=== PATIENT | male | born 1950 | race African-American/Black ===

== ENCOUNTER 2016-10-29 11:38 | Inpatient (IN) | payer MEDICARE, OTHER ==
[~2016-10-29] VITALS: Ht 185.4 cm; Wt 88.9 kg
[~2016-10-29 11:38] MED LIST: ALBU1AER INH; CLIN1CAP5 PO; COUM4TAB7 PO; LASI20TA PO; LISI-363 PO; LOPR50TA12 PO
[2016-10-29 11:40] VITALS: BP 111/56; PULSE 66; RESP 14; TEMP 98.8; O2SAT 97
--- NOTE | 2016-10-29 11:46 | PD ---
Physical Exam Date Seen by Provider: Oct 29, 2016 Time Seen by Provider: 11:42 Data Data Last Documented VS Vital Signs Date Time Temp Pulse Resp B/P Pulse Ox O2 Delivery O2 Flow Rate FiO2 10/29/16 11:40 98.8 66 14 111/56 97 MDM Supervised Visit with EDGARDO: No Narrative Course 66 YO M with complaint of weakness, CP, SOB, abdominal pain, N/V, blood in stools. + chills, sweats. History CHF, DM, HTN, asthma. ON COUMADIN Vitals reviewed. Seen in triage, awaiting bed placement. Tracee Hall Oct 29, 2016 11:45
[2016-10-29] MEDS ORDERED: SODIUM CHLORIDE 0.9% FLUSH 10 ML FLUSH IVF PRN (12:00)
--- NOTE | 2016-10-29 12:01 | PD ---
HPI Chief Complaint: Chest Pain Time Seen by Provider: 12:01 Travel History International Travel<30 days: No Contact w/Intl Traveler<30days: No Traveled to known affect area: No History of Present Illness HPI 66-year-old male with a history of hypertension, hyperlipidemia, CHF, atrial fibrillation, diabetes, CVA anticoagulated on warfarin presents to the emergency department for evaluation of chest pain and abdominal pain. The patient states that he has had left-sided chest pain for 2-3 months. States it happens every day multiple times per day. Describes it as a sharp fluttering pain. It should be noted that the patient is a very poor historian. The patient states that he does sometimes have lightheadedness with the pain. He also states that 3 days ago he had one single episode of bloody emesis. States that he has had 1-2 episodes of bloody stool over the past several days and his grandson noted that his stool was dark. He also complains of abdominal pain. The patient's is also at bedside and reports that the patient has been confused and not acting like himself for about 2 weeks. She states that she does not live with him but when she came to see him 2 weeks ago she noticed he had some bruises on his face and thinks that he fell. The patient denies any fever, chills, shortness of breath, cough or cold symptoms, headache, blurred vision, weakness, numbness or tingling. The patient admits to a history of alcohol use, states that he previously drank alcohol every day but has not drank in 2 weeks. Denies drug use. PCP Dr. Burnett. [facility] Past Medical History Hx Anticoagulant Therapy: Yes (WARFARIN) Arthritis: No Asthma: Yes Atrial Fibrillation: Yes Autoimmune Disease: No Blood Disorders: No Anxiety: No Depression: No Heart Rhythm Problems: No Cancer: No Cardiac Catheterization: No Cardiovascular Problems: Yes (CHF, [place]) High Cholesterol: No Chemotherapy: No Chest Pain: Yes (1979) Congestive Heart Failure: Yes COPD: Yes Cerebrovascular Accident: Yes Coronary Artery Disease: Yes Diabetes: Yes Patient Takes Glucophage: No Diminished Hearing: Yes (PARTIALLY DEAF IN LEFT EAR) Endocrine: No GERD: No Glaucoma: No Genitourinary: No Headaches: Yes Hepatitis: No Hiatal Hernia: Yes (RIGHT INGUINAL HERNIA REPAIR.) Hypertension: Yes Immune Disorder: No Kidney Stones: No Medical other: No Musculoskeletal: No Neurologic: Yes Psychiatric: No Reproductive: No Respiratory: Yes (ASTHMA) Migraines: No Myocardial Infarction: Yes (H/O) Radiation Therapy: No Renal Failure: No Seizures: No Sickle Cell Disease: No Sleep Apnea: No Thyroid Disease: No Ulcer: No Past Surgical History Abdominal Surgery: Yes (RIGHT INGINAL HERNIA REPAIR.) AICD: No Appendectomy: No Arteriovenous Shunt: No Cardiac Surgery: No Cholecystectomy: No Coronary Artery Bypass Graft: No Ear Surgery: No Endocrine Surgery: No Eye Surgery: No Genitourinary Surgery: No Gynecologic Surgery: No Insulin Pump: No Joint Replacement: No Oral Surgery: No Pacemaker: No Thoracic Surgery: No Other Surgery: Yes (CYST REMOVED FROM HIS BACK) Social History Alcohol Use: Yes (states he use to drink daily ) Tobacco Use: No Substance Use: No Allergies-Medications (Allergen,Severity, Reaction): Coded Allergies: Penicillin (Verified Allergy, Mild, 10/29/16) Reported Meds & Prescriptions Reported Meds & Active Scripts Active Reported Metoprolol Tartrate 50 Mg Tab 50 Mg PO BID Lisinopril 20 Mg Tab 20 Mg PO DAILY Ergocalciferol 50,000 Unit Cap 50,000 Units PO Q7D Warfarin 4 Mg Tab 4 Mg PO DAILY Review of Systems ROS Limitations: Poor Historian Except as stated in HPI: all other systems reviewed are Neg Physical Exam Exam Limitations: Poor Historian Narrative GENERAL: Well-nourished and well-developed male patient in no acute distress. SKIN: Warm and dry. HEAD: Normocephalic and atraumatic. No facial droop. EYES: No injection, drainage, or hyphema noted. PERRLA. EOMI. ENT: No nasal drainage noted. Oropharynx is clear. NECK: Supple and the trachea is midline. CARDIOVASCULAR: Regular rate and rhythm. RESPIRATORY: Breath sounds are equal bilaterally with no accessory muscle use, wheezing, rhonchi, or crackles. GASTROINTESTINAL: Tenderness to palpation of left lower quadrant, epigastric and left upper quadrant. No rebound tenderness or guarding. RECTAL EXAM: No masses or tenderness, stool is brown. Performed in the presence of Marsha LAGUNAS. MUSCULOSKELETAL: No obvious deformities, swelling, cyanosis, or ecchymosis is present throughout the upper and lower extremities. Patient has full range of motion without any signs of neurovascular compromise. During 5/5 upper and lower extremities equal bilaterally. NEUROLOGICAL: Awake, alert, and oriented to person and place. Unsure of the date or time. Normal speech and gait. Cranial nerves are grossly intact. Data Data Last Documented VS Vital Signs Date Time Temp Pulse Resp B/P Pulse Ox O2 Delivery O2 Flow Rate FiO2 10/29/16 14:01 62 14 115/55 99 Room Air 10/29/16 11:40 98.8 Orders Electrocardiogram (10/29/16 11:59) B-Type Natriuretic Peptide (10/29/16 11:59) Ckmb (Isoenzyme) Profile (10/29/16 11:59) Complete Blood Count With Diff (10/29/16 11:59) Comprehensive Metabolic Panel (10/29/16 11:59) Magnesium (Mg) (10/29/16 11:59) Prothrombin Time / Inr (Pt) (10/29/16 11:59) Act Partial Throm Time (Ptt) (10/29/16 11:59) Troponin I (10/29/16 11:59) Lipase (10/29/16 11:59) Chest, Single Ap (10/29/16 11:59) Ecg Monitoring (10/29/16 11:59) Iv Access Insert/Monitor (10/29/16 11:59) Oximetry (10/29/16 11:59) Sodium Chloride 0.9% Flush (Ns Flush) (10/29/16 12:00) Ct Abd/Pel W Iv Contrast(Rout) (10/29/16 11:59) Ct Brain W/O Iv Contrast(Rout) (10/29/16 12:04) Urinalysis - C+S If Indicated (10/29/16 12:09) Drug Screen, Random Urine (10/29/16 12:09) Alcohol (Ethanol) (10/29/16 12:00) Morphine Inj (Morphine Inj) (10/29/16 13:00) Ondansetron Inj (Zofran Inj) (10/29/16 13:00) CKMB (10/29/16 13:20) CKMB% (10/29/16 13:20) Azithromycin Inj (Zithromax Inj) (10/29/16 14:30) Ceftriaxone Inj (Rocephin Inj) (10/29/16 14:30) Sodium Chlor 0.9% 1000 Ml Inj (Ns 1000 M (10/29/16 14:48) Iohexol 350 Inj (Omnipaque 350 Inj) (10/29/16 15:38) Mri Brain W&W/O Contrast (10/29/16 16:06) Urine Culture (10/29/16 15:59) Gadodiamide Pf Inj (Omniscan Pf Inj) (10/29/16 17:47) Admit Order (Ed Use Only) (10/29/16 18:29) Labs Laboratory Tests Test 10/29/16 10/29/16 10/29/16 12:00 13:20 15:59 White Blood Count 6.1 TH/MM3 Red Blood Count 5.01 MIL/MM3 Hemoglobin 14.0 GM/DL Hematocrit 42.0 % Mean Corpuscular Volume 83.8 FL Mean Corpuscular Hemoglobin 28.0 PG Mean Corpuscular Hemoglobin 33.4 % Concent Red Cell Distribution Width 13.2 % Platelet Count 237 TH/MM3 Mean Platelet Volume 7.8 FL Neutrophils (%) (Auto) 65.6 % Lymphocytes (%) (Auto) 19.6 % Monocytes (%) (Auto) 14.0 % Eosinophils (%) (Auto) 0.3 % Basophils (%) (Auto) 0.5 % Neutrophils # (Auto) 4.0 TH/MM3 Lymphocytes # (Auto) 1.2 TH/MM3 Monocytes # (Auto) 0.9 TH/MM3 Eosinophils # (Auto) 0.0 TH/MM3 Basophils # (Auto) 0.0 TH/MM3 CBC Comment DIFF FINAL Differential Comment Prothrombin Time 14.7 SEC Prothromb Time International 1.3 RATIO Ratio Activated Partial 37.9 SEC Thromboplast Time B-Type Natriuretic Peptide 16 PG/ML Sodium Level 130 MEQ/L Potassium Level 4.9 MEQ/L Chloride Level 97 MEQ/L Carbon Dioxide Level 27.8 MEQ/L Anion Gap 5 MEQ/L Blood Urea Nitrogen 12 MG/DL Creatinine 0.83 MG/DL Estimat Glomerular Filtration 112 ML/MIN Rate Random Glucose 97 MG/DL Calcium Level 8.5 MG/DL Magnesium Level 2.4 MG/DL Total Bilirubin 0.7 MG/DL Aspartate Amino Transf 111 U/L (AST/SGOT) Alanine Aminotransferase 53 U/L (ALT/SGPT) Alkaline Phosphatase 55 U/L Total Creatine Kinase 306 U/L Creatine Kinase MB LESS THAN 0.5 NG/ML Troponin I LESS THAN 0.02 NG/ML Total Protein 7.3 GM/DL Albumin 2.7 GM/DL Lipase 86 U/L Ethyl Alcohol Level LESS THAN 3 MG/DL Urine Color YELLOW Urine Turbidity CLEAR Urine pH 5.5 Urine Specific Morton 1.024 Urine Protein 30 mg/dL Urine Glucose (UA) NEG mg/dL Urine Ketones NEG mg/dL Urine Occult Blood NEG Urine Nitrite NEG Urine Bilirubin NEG Urine Urobilinogen 2.0 MG/DL Urine Leukocyte Esterase TRACE Urine RBC 1 /hpf Urine WBC 11 /hpf Urine Squamous Epithelial <1 /hpf Cells Urine Bacteria FEW /hpf Urine Hyaline Casts 1 /lpf Urine Mucus FEW /lpf Microscopic Urinalysis Comment CULTURE INDICATED Urine Opiates Screen POS Urine Barbiturates Screen NEG Urine Amphetamines Screen NEG Urine Benzodiazepines Screen NEG Urine Cocaine Screen NEG Urine Cannabinoids Screen NEG MDM Medical Decision Making Medical Screen Exam Complete: Yes Emergency Medical Condition: Yes Differential Diagnosis Intracranial hemorrhage versus chest pain versus ACS versus CVA versus electrolyte abnormality versus GI bleed Narrative Course 66-year-old male presents to the emergency department for multiple complaints. He is here complaining of chest pain, abdominal pain, had an episode of bloody emesis and bloody stool and is somewhat confused. Patient is afebrile, vital signs are stable. On examination the patient does have abdominal tenderness to palpation. He is a poor historian and is oriented to person and place only. EKG shows sinus rhythm with no acute ST elevations or depressions. IV access was obtained, labs have been drawn and sent. Patient is placed on cardiac telemetry and pulse oximetry monitoring. CT of the head and the abdomen has been ordered and is pending. CBC is unremarkable. CMP shows mild hyponatremia 130. Cardiac enzymes are negative. Coags show a subtherapeutic INR of 1.3. EtOH is less than 3. Chest x-ray shows increasing consolidative changes in the left lung base. Head CT shows decreased attenuation posteriorly on the left possibly represent an infarct however this could also represent vasogenic edema and underlying mass is not excluded. Postcontrast MRA is warranted for further assessment. 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 CT of the abdomen and pelvis shows developing left lower lobe pneumonia versus aspiration. Stomach is nearly completely decompressed with prominence of the gastric wall in the fundus and body of the stomach. Although this is likely related to incomplete gastric distention, gastritis or less likely an infiltrative process cannot be entirely excluded. Clinical correlation is recommended. Further evaluation may be performed with upper GI examination or endoscopy as clinically warranted. Normal appendix. Apparent interval enlargement of left adrenal mass when compared to prior remote CT exam. Patient is given Rocephin 1 g IV and Zithromax 500 mg IV for pneumonia. MRI has been ordered and is pending. Patient will be admitted to medicine service for altered mental status, chest pain and pneumonia. I discussed the case with my attending physician Dr. Laguerre who is aware of the patients history, physical examination findings, and treatment plan. Physician Communication Physician Communication I spoke with Dr. Cano Kyleigh who agrees to admit the patient to his service. Diagnosis Primary Impression: Altered mental status Qualified Code: R41.0 - Disorientation Additional Impressions: Pneumonia Qualified Code: J18.1 - Pneumonia of left lower lobe due to infectious organism Chest pain Qualified Code: R07.9 - Chest pain, unspecified type Admitting Information Admitting Physician Requests: Gricelda Muse Oct 29, 2016 12:01
[2016-10-29] MEDS ORDERED: LISI-515 PO (12:08)
[2016-10-29] MEDS ORDERED: WARF-20 PO (12:08)
[2016-10-29] MEDS ORDERED: METO50TA PO (12:08)
[2016-10-29] MEDS ORDERED: ERGO1CAP30 PO (12:08)
[2016-10-29 12:29] LABS: BASOPHIL % 0.5 % (0.0-2.0); EOSINOPHIL % 0.3 % (0.0-4.0); HEMO FLAGS DIFF FINAL; LYMPH % 19.6 % (9.0-44.0); LYMPHOCYTE # 1.2 TH/MM3 (1.0-4.8); MEAN CELL VOLUME 83.8 FL (80.0-100.0); MEAN CORPUSCULAR HGB CONC 33.4 % (32.0-36.0); NEUT % 65.6 % (16.0-70.0); PLATELET COUNT 237 TH/MM3 (150-450); RED BLOOD COUNT 5.01 MIL/MM3 (4.50-5.90); RED CELL DISTRIBUTION WIDTH 13.2 % (11.6-17.2); WHITE BLOOD COUNT 6.1 TH/MM3 (4.0-11.0)
[2016-10-29 12:37] LABS: APTT (PATIENT) 37.9 SEC (24.3-30.1); INTERNATIONAL NORMALIZED RATIO 1.3 RATIO; PROTHROMBIN TIME - PATIENT 14.7 SEC (9.8-11.6)
[2016-10-29] MEDS ORDERED: ONDANSETRON HCL 4 MG/2 ML VIAL IV PUSH ONE (13:00)
[2016-10-29] MEDS ORDERED: MORPHINE SULFATE 4 MG/ML INJ IV PUSH ONE (13:00)
--- NOTE | 2016-10-29 13:08 | RADRPT ---
EXAM DATE/TIME: 10/29/2016 12:24 [facility] COMPARISON: CHEST SINGLE AP, September 04, 2014, 13:38. INDICATIONS : Chest pain. MEDICAL HISTORY : Myocardial infarction. Chronic obstructive pulmonary disease. Congestive heart failure. Hypertens ion SURGICAL HISTORY : None. ENCOUNTER: Initial ACUITY: 3 days PAIN SCORE: 5/10 LOCATION: Left upper chest FINDINGS: Increasing consolidations are present in the left base. The right lung is clear. The heart and pulmo nary vascularity are normal. The portion of the bony skeleton visualized is unremarkable. CONCLUSION: Increasing consolidative changes left base. Edin Srinivasan MD FACR on October 29, 2016 at 13:05 Board Certified Radiologist. This report was verified electronically.
[2016-10-29 14:01] VITALS: BP 115/55; PULSE 62; RESP 14; O2SAT 99
[2016-10-29 14:15] LABS: ALKALINE PHOSPHATASE 55 U/L (45-117); ALT (GPT) 53 U/L (12-78); ANION GAP 5 MEQ/L (5-15); AST (GOT) 111 U/L (15-37); BICARBONATE 27.8 MEQ/L (21.0-32.0); BLOOD UREA NITROGEN 12 MG/DL (7-18); CHLORIDE 97 MEQ/L (98-107); CREATINE KINASE 306 U/L (39-308); GLOMERULAR FILTRATION RATE 112 ML/MIN (>89); MAGNESIUM 2.4 MG/DL (1.5-2.5); POTASSIUM 4.9 MEQ/L (3.5-5.1); SODIUM (NA) 130 MEQ/L (136-145); TOTAL BILIRUBIN ADULT 0.7 MG/DL (0.2-1.0)
[2016-10-29 14:28] LABS: CKMB LESS THAN 0.5 NG/ML (0.5-3.6)
[2016-10-29] MEDS ORDERED: AZITHROMYCIN INJ 500 MG in SODIUM CHLOR 0.9% 250 ML INJ 250 ML IV ONE (14:30)
[2016-10-29] MEDS ORDERED: cefTRIAXone INJ 1,000 MG in SODIUM CHLORIDE 0.9% INJ 100 ML IV ONE (14:30)
[2016-10-29] MEDS ORDERED: SODIUM CHLOR 0.9% 1000 ML INJ 1,000 ML IV SCH (14:48)
[2016-10-29] MEDS ORDERED: IOHEXOL 350 MG/ML 10 ML VIAL (for RAD DIAG) IV ONE (15:38)
--- NOTE | 2016-10-29 16:01 | RADRPT ---
EXAM DATE/TIME: 10/29/2016 15:21 [facility] COMPARISON: CT ABDOMEN & PELVIS W CONTRAST, April 30, 2012, 15:17. INDICATIONS : General malaise. Numbness left leg. RADIATION DOSE: 56.38 CTDIvol (mGy) MEDICAL HISTORY : Diabetes mellitus type 2. Cardiovascular disease Hypertension. SURGICAL HISTORY : None. ENCOUNTER: Initial ACUITY: 1 day PAIN SCALE: 0/10 LOCATION: cranial TECHNIQUE: Multiple contiguous axial images were obtained of the head. Using automated exposure control and adj ustment of the mA and/or kV according to patient size, radiation dose was kept as low as reasonably a chievable to obtain optimal diagnostic quality images. FINDINGS: CEREBRUM: The examination demonstrates an area of decreased attenuation in the watershed distribution between t he left parietal-occipital cortex. It is possible this is cytotoxic edema from stroke however finding s would suggest this could represent vasogenic edema as well. MRI imaging with contrast to exclude ma ss is warranted. The ventricles are normal in size and configuration. There is an old cortical infarc t in the left caudate nucleus. There are microvascular ischemic demyelinative change changes. POSTERIOR FOSSA: The cerebellum and brainstem are intact. The 4th ventricle is midline. The cerebellopontine angle i s unremarkable. EXTRACRANIAL: The visualized portion of the orbits is intact. SKULL: The calvaria is intact. No evidence of skull fracture. CONCLUSION: 1. Decreased attenuation posteriorly on the left possibly representing infarct however this could als o represent vasogenic edema and underlying mass is not excluded. Postcontrast MR is warranted for fur ther assessment. 2. Old, encephalomalacic infarct involving the left caudate nucleus. Francisco Srinivasan MD on October 29, 2016 at 15:43 Board Certified Radiologist. This report was verified electronically.
[2016-10-29 16:33] LABS: AMPHETAMINE, URINE NEG (NEG); BARBITURATES, URINE NEG (NEG); COCAINE, URINE NEG (NEG)
--- NOTE | 2016-10-29 16:33 | RADRPT ---
EXAM DATE/TIME: 10/29/2016 15:18 [facility] COMPARISON: CT ABDOMEN & PELVIS W CONTRAST, April 30, 2012, 15:17. INDICATIONS : Chest pain, shortness of breath, chills and diarrhea for 2-3 days. IV CONTRAST: 100 cc Omnipaque 350 (iohexol) IV ORAL CONTRAST: No oral contrast ingested. RADIATION DOSE: 9.96 CTDIvol (mGy) MEDICAL HISTORY : Diabetes mellitus type 2. Hypertension. Cardiovascular disease SURGICAL HISTORY : Hernia repair. ENCOUNTER: Initial ACUITY: 1 day PAIN SCALE: 5/10 LOCATION: Bilateral upper quadrant TECHNIQUE: Volumetric scanning of the abdomen and pelvis was performed. Using automated exposure control and ad justment of the mA and/or kV according to patient size, radiation dose was kept as low as reasonably achievable to obtain optimal diagnostic quality images. FINDINGS: LOWER LUNGS: Nodular groundglass left basilar opacities are consistent with pneumonia or aspiration. LIVER: Homogeneous density without lesion. There is no dilation of the biliary tree. No calcified gallston es. SPLEEN: Normal size without lesion. PANCREAS: Within normal limits. KIDNEYS: There is minimal cortical scarring noted in the superior pole and inferior pole of the left kidney an d likely inferior pole of the right kidney. Kidneys otherwise demonstrate symmetrical enhancement wit hout evidence for hydronephrosis there is excretory phase of contrast with opacification of the renal collecting systems and ureters bilaterally. No evidence for significant filling defects.. ADRENAL GLANDS: Ill-defined left adrenal mass with indeterminate density measuring 2.4 x 1.4 x 3.3 cm. Previously, th ere was adreniform enlargement of the adrenal gland with a very small subcentimeter mass. There is ad reniform enlargement of the right adrenal gland. VASCULAR: No aortic aneurysm. BOWEL/MESENTERY: Stomach is decompressed which accentuates the stomach wall. However, there is prominence of the gastr ic wall diffusely in the pylorus and body of the stomach. This is associated with slight prominence o f the perigastric veins. Examination of the remainder of the bowel demonstrates no gross bowel wall t hickening or evidence for obstruction. Appendix is visualized and is normal in appearance. ABDOMINAL WALL: Within normal limits. RETROPERITONEUM: There is no lymphadenopathy. BLADDER: Decompressed but otherwise unremarkable by CT. REPRODUCTIVE: Mild prominence of the prostate. INGUINAL: There is no lymphadenopathy or hernia. MUSCULOSKELETAL: Within normal limits for patient age. CONCLUSION: 1. Developing left lower lobe pneumonia versus aspiration. 2. Stomach is nearly completely decompressed with prominence of the gastric wall in the fundus and tran dy of the stomach. Although this is likely related to incomplete gastric distention, gastritis or les s likely an infiltrative process cannot be entirely excluded. Clinical correlation is recommended. Fu rther evaluation may be performed with upper GI examination or endoscopy as clinically warranted. 3. Normal appendix. 4. Apparent interval enlargement of left adrenal mass now measuring 2.4 x 1.4 x 3.3 cm in comparison to remote prior CT examination of 2011. Further evaluation may be performed with adrenal mass protoco l MRI or CT examination. Reuben Freeman MD on October 29, 2016 at 16:15 Board Certified Radiologist. This report was verified electronically.
[2016-10-29 16:36] LABS: BACTERIA, URINE FEW /hpf; BLOOD, URINE NEG (NEG); COMMENT (UR) CULTURE INDICATED; CULTURE IF INDICATED CULTURE INDICATED; GLUCOSE,URINE NEG (NEG); HYALINE CAST, URINE 1 /lpf (RARE); KETONE, URINE NEG (NEG); MUCUS URINE FEW /lpf (OCC); NITRITE,URINE NEG (NEG); PH, URINE 5.5 (5.0-8.5); SQUAMOUS EPITHELIAL CELL URINE <1 /hpf (0-5); URINE COLOR YELLOW (YELLW/STRAW)
[2016-10-29] MEDS ORDERED: GADODIAMIDE PF 287 MG/ML 20 ML VIAL (for RAD MRI) IV ONE (17:47)
--- NOTE | 2016-10-29 18:21 | RADRPT ---
EXAM DATE/TIME: 10/29/2016 17:33 [facility] COMPARISON: CT BRAIN W/O CONTRAST, October 29, 2016, 15:21. INDICATIONS : Weakness. Abnormal CT. CONTRAST: 20 cc Omniscan (gadodiamide) IV MEDICAL HISTORY : Congestive heart failure. Chronic obstructive pulmonary disease. Hypertension. Diabetes. SURGICAL HISTORY : Umbilical hernia repair. ENCOUNTER: Subsequent ACUITY: 1 day PAIN SCORE: 0/10 LOCATION: head TECHNIQUE: Multiplanar, multisequence MRI of the brain was performed both prior to and following the administrat ion of paramagnetic contrast. FINDINGS: CEREBRUM: There is generalized atrophy. Ventricles are normal in size given the degree of atrophy present. Ther e is mild ex vacuo dilatation of the left lateral ventricle secondary to partially cystic encephaloma lacia in the left frontal lobe. This area of encephalomalacia is associated with blooming on the susc eptibility weighted imaging suggesting hemosiderin deposition an area of old infarct. There is also i nsufflation in the left parietal high convexity. No midline shift, mass lesion, hemorrhage or acute i nfarction. No extraaxial fluid collections are seen. The pituitary gland and suprasellar cistern ar e normal in configuration. WHITE MATTER: There is a moderate periventricular and subcortical white matter signal change bilaterally. POSTERIOR FOSSA: The cerebellum and brainstem demonstrate no acute finding. The 4th ventricle is midline. The cerebel lopontine angle is unremarkable. The cerebellar tonsils are normal in position. DIFFUSION IMAGING: No focal areas of restricted diffusion are seen. No evidence of acute infarction. EXTRACRANIAL: The visualized portions of the orbits and paranasal sinuses are unremarkable. POST-CONTRAST: No abnormal areas of parenchymal or dural enhancement. No evidence of blood-brain barrier breakdown. CONCLUSION: 1. No acute intracranial abnormalities identified. There are no findings to indicate recent ischemia. No mass is visualized. 2. Chronic changes include left parietal lobe encephalomalacia and partially cystic encephalomalacia in the left frontal lobe. Sher Kahn MD on October 29, 2016 at 18:14 Board Certified Radiologist. This report was verified electronically.
[2016-10-29 18:38] VITALS: BP 133/64; PULSE 62; RESP 16; O2SAT 97
[2016-10-29] MEDS ORDERED: NITROGLYCERIN 0.4 MG SL 25 TABS/BTL SL PRN (18:45)
[2016-10-29] MEDS ORDERED: BISACODYL 10 MG SUPP RECTAL PRN (18:45)
[2016-10-29] MEDS ORDERED: SENNOSIDES 8.6 MG TAB PO PRN (18:45)
[2016-10-29] MEDS ORDERED: NALOXONE HCL 0.4 MG/ML AMP IV PRN (18:45)
[2016-10-29] MEDS ORDERED: ONDANSETRON HCL 4 MG/2 ML VIAL IVP PRN (18:45)
[2016-10-29] MEDS ORDERED: ACETAMINOPHEN 325 MG TAB PO PRN (18:45)
[2016-10-29] MEDS ORDERED: SODIUM CHLORIDE 0.9% FLUSH 10 ML FLUSH IV FLUSH PRN (18:45)
[2016-10-29] MEDS ORDERED: MAGNESIUM HYDROXIDE SUSP 30 ML CUP PO PRN (18:45)
[2016-10-29] MEDS ORDERED: LACTULOSE SYRUP 20 GM/30 ML CUP PO PRN (18:45)
[2016-10-29] MEDS ORDERED: ERGOCALCIFEROL (VIT D2) 50,000 UNIT CAP PO SCH ×2 (19:00→21:00)
[2016-10-29] MEDS: NITROGLYCERIN 2% OINT 1 GM PACKET TOPICAL SCH (20:05)
[2016-10-29] MEDS: ASPIRIN 81 MG CHEW TAB PO SCH (20:05)
[2016-10-29] MEDS: SODIUM CHLOR 0.9% 1000 ML INJ 1,000 ML IV SCH (20:06)
--- NOTE | 2016-10-29 20:18 | MH ---
cc: KARINE NOEL DATE OF ADMISSION 10/29/2016 DATE OF 1950 CHIEF COMPLAINT Chest pain, abdominal pain. No travel in the last 30 days. HISTORY OF THE PRESENT ILLNESS This is a 66-year-old black male who states that he was in his usual state of health up until a few months ago. He first noted some left-sided mid chest pain that seemed to come and go. He states that he did get short of breath with the pain. It does radiate down in to his left arm with some numbness and tingling. He states that he did have some nausea and vomiting related to the pain. He currently denies any chest pain but does note some abdominal pain. He points to mid lower abdomen and states that when he had nausea and vomiting he noticed some dark emesis possible blood. He states that he has vomited several times over the last few days. The patient denies any headache. No current nausea or vomiting. He states that he has not eaten anything today. Denies any dysuria. The patient does show generalized weakness and fatigue. The patient is attempting to answer questions but is a poor historian. His , who does not live with him, is currently in the room assisting with some of the information. The patient does exhibit signs of altered mental status. According to the records he notes some lightheadedness off and on with the chest pain. The patient does have a history of atrial fibrillation but currently he is in a sinus rhythm. notes some bruising on his face and states that he looks like he feels bad to her. She is concerned that he may be falling. The patient does live alone and does have a significant history of alcohol abuse but states that he has felt good and has not drank anything in the past month. PAST MEDICAL HISTORY 1. Atrial fibrillation. Coumadin therapy. 2. Asthma. 3. Congestive heart failure. 4. Myocardial infarctions. 5. Chest pain. 6. Angina pain. 7. Cerebrovascular accident. 8. Congestive heart failure. 9. Chronic obstructive pulmonary disease. 10. Coronary artery disease. 11. 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 12. Right inguinal hernia. 13. Hypertension. 14. Headaches. PAST SURGICAL HISTORY 1. Right inguinal hernia repair. 2. Cyst removed from his back. 3. The states some type of colon surgery or procedure, but is not sure of the exact type or what it was for. ALLERGIES PENICILLIN. MEDICATIONS Reported: 1. Metoprolol. 2. Lisinopril. 3. Coumadin 4 milligrams daily. 4. Ergocalciferol 50,000 units cap by mouth every seven days. SOCIAL HISTORY The patient does live alone but his and family do check on him. The patient states that he quit smoking years ago but does not know exactly when. He does admit to drinking alcohol but states that he has not drank anything in a month or so. and grandson disagree with that statement. No illicit drugs to my knowledge. REVIEW OF SYSTEMS Poor historian. Some altered mental status symptom and discussion has been mentioned in the history of present illness. PHYSICAL EXAMINATION VITAL SIGNS: Temperature is 98.8, pulse between 62-66, respiratory rate 14-20, blood pressure 133/64, has been as low as 111/56 on admission. O2 saturation 97% on room air. GENERAL: Well-nourished, well-developed, black male resting on a stretcher. No shortness of breath. No acute pain at present. SKIN: Very dry, pink. Pale pink mucous membranes. HEENT: Normocephalic. Speech is clear and soft. Mucous membranes are slightly dry. Tongue is midline. No scleral icterus. NECK: Supple. CARDIOVASCULAR: Regular rate and rhythm. Soft systolic murmur noted at the left sternal border. There is no edema. His extremities are warm. LUNGS: Low volumes but no wheezes, rhonchi or rales noted. He does have some decreased breath sounds in his left base. ABDOMEN: Flat. Soft. States some pain and some mild tenderness in the mid to lower abdomen. Bowel sounds are very soft and hypoactive. MUSCULOSKELETAL: The patient has generalized weakness but can move his extremities on command. He has no obvious deformity. NEUROLOGIC: He is awake. He is attempted to answer some questions but appears to be unable to find sentences and words at times. Some disorientation to situation and history. PSYCHIATRIC: Flat but appropriate mood and affect. LABORATORY DATA Diagnostic data, WBC count 6.1, RBC 5.01, hemoglobin 14, hematocrit 42. The only abnormal diff is monocyte percentage auto 14. PT INR is 1.3. Chemistries, sodium 130, potassium 4.9, chloride 97, carbon dioxide 27.8, anion gap 5, BUN 12, creatinine 0.83. Random glucose 97. AST 111. Troponins less than 0.02. Albumin 2.7. Lipase 86. Total protein 7.3. B-type natriuretic peptide is 16. The patient's urine does show a trace of leukocyte esterase and a few mucus. He does show a protein level of 30. All other levels are negative. Culture is indicated. Toxicology screen shows ethanol level less than 3. Positive for opiates. Otherwise negative for barbiturates, amphetamines, benzodiazepines, cocaine and cannabis. IMAGING Show a chest x-ray to have some consolidation changes in the left base. Abdomen CT shows developing left lower lobe pneumonia versus aspiration. The stomach is decompressed with prominence of the gastric wall and fundus of the body of the stomach, it is probably incomplete gastric distention or gastritis. Clinical correlation may be recommended for possible upper GI study. Normal appendix. Interval enlargement of the left adrenal mass now measuring 2.4 x 1.4 x 3.3. This is a comparison from 2012. Further evaluation may be needed for CT scan or MRI. CT scan of the head shows old encephalomalacic infarct of the left caudate nucleus, decreased attenuation posteriorly on the left representing an infarct possible, this could be vasogenic edema and underlying mass cannot be excluded. MRI of the brain shows no acute intracranial abnormality. No masses visualized. Chronic changes in the left parietal lobe, encephalomalacia, partially cystic encephalomalacia of the left frontal lobe. ASSESSMENT AND PLAN 1. Altered mental status. 2. Chest pain, rule out myocardial infarction and/or cardiac event. 3. Hypertension. 4. Probable pneumonia. 5. Abdominal pain with possible gastritis. 6. History of atrial fibrillation with subtherapeutic anticoagulation level. 7. History of cerebrovascular accident. 8. Hyperlipidemia. Our plan is to admit inpatient status. We will maintain him on clear liquid diet with sips of liquids minimal tonight until the patient can be further evaluated. We will treat his chest pain as a cardiac pain. His medications have been reconciled. He is now on beta blockers, a statin, nitrates. Serial cardiac enzymes are being done and cardiac consultation has been ordered. The patient's MRI of the brain has been noted. Neurology consultation has been obtained to evaluate his abnormal MRI. We will rule out cerebrovascular accident. We will monitor neurological checks. We will heme-occult stools due to the patient's stated abnormal findings with possible dark blood. We will start him on Rocephin per the examination findings. Currently the patient is not experiencing any shortness of breath but we will place him on oxygen and monitor O2 saturations and vital signs. The patient has placed on peptic ulcer disease prophylaxis with Pepcid, nitroglycerine sublingual as needed. Neurological checks and vital signs will be q.4h as needed. The patient states that he has had no appetite and has not been eating. We will give him IV fluids for gentle hydration only with special attention to any shortness of breath or changes in his O2 saturation. Urine culture has been ordered in the emergency room. The patient has already had a dose of Rocephin and azithromycin. We will go ahead and continue both of those medications. Aspirin has been ordered. Bowel regimen has been ordered. The patient is full code, full aggressive care. We will continue to monitor his needs. Dictated by: OSMAN Gunter Karine Noel MD JP/REDDY /7:20 PM /7:38 PM PT'S EVALUATION WASDONE ABOVE ON DAY OF ADMISSION CHART WAS REVIEWED MEDS LABS AND RAD DATA REVIWED EXPLAINED TO PT PLAN OF CARE SUDHAKAR STARKEY
[2016-10-29] MEDS: SODIUM CHLORIDE 0.9% FLUSH 10 ML FLUSH IV FLUSH SCH (20:59)
[2016-10-29] MEDS ORDERED: CARVEDILOL 3.125 MG TAB PO SCH (21:00)
--- NOTE | 2016-10-29 22:24 | MB ---
cc: ARGELIAISRAEL DATE OF CONSULTATION 10/29/2016 HISTORY Mr. Stevens is a 66-year-old black male with history of hypertension, dyslipidemia, congestive heart failure, atrial fibrillation and CVA. He presented with left parasternal sharp chest discomfort for the last several days. The pain improves with food. He had an episode of hematemesis several days ago and also several episodes of hematochezia. He also has had abdominal pain. He has mild shortness of breath with exertion. He has history of alcohol abuse. Apparently he has not been drinking for the last two weeks. PAST MEDICAL HISTORY Positive for: 1. Hypertension. 2. Dyslipidemia. 3. Congestive heart failure. 4. Atrial fibrillation. 5. Diabetes mellitus. 6. Cerebrovascular accident. 7. Arthritis. 8. Myocardial infarction. 9. Chronic obstructive pulmonary disease. 10. Coronary artery disease. 11. Hearing loss in the left ear. 12. Headaches. 13. Hiatal hernia status post repair on the right side. 14. Asthma. 15. Surgery for cyst on his back. MEDICATIONS Include: 1. Warfarin. 2. Ergocalciferol. 3. Lisinopril. 4. Metoprolol. ALLERGIES PENICILLIN. SOCIAL HISTORY The patient used to smoke but does not smoke any more. He used to drink alcohol daily up until about two weeks ago. FAMILY HISTORY Positive for heart disease. REVIEW OF SYSTEMS Otherwise negative. PHYSICAL EXAMINATION VITAL SIGNS: Blood pressure 133/64, pulse 62 and regular. HEENT: Negative. NECK: 2+ carotid upstrokes. No bruits. LUNGS: Clear. HEART: Regular with no murmur, gallop or rubs. ABDOMEN: Soft. No bruits. EXTREMITIES: Without edema. 1-2+ distal pulses. NEUROLOGIC: Exam is grossly nonfocal. EKG shows normal sinus rhythm with normal axis and intervals, no acute changes. LABORATORY DATA Hemoglobin 14.0. Potassium 4.9, creatinine 0.8. troponin normal. CK 306. CK-MB normal. DIAGNOSES 1. Atypical chest pain. 2. Coronary artery disease. 3. Congestive heart failure. 4. Paroxysmal atrial fibrillation. 5. Hypertension. 6. Dyslipidemia. 7. Diabetes mellitus. 8. History of cerebrovascular accident. DISPOSITION Mr. Stevens presented with atypical chest pain, hematemesis and hematochezia. His EKG is normal and his first set of enzymes is unremarkable. The chest pain is likely of GI origin. I recommend to continue monitoring on telemetry. I recommend to obtain serial enzymes and EKGs. I recommend to continue his current medical program including metoprolol and lisinopril. He will need GI evaluation. I will follow him for cardiology during his hospitalization. His last echocardiogram in 2014 showed mild left ventricular dysfunction. We will obtain echocardiogram to reevaluate his left ventricular function. MD CHRISTO Mejia/KK /7:50 PM /10:04 PM JAKY
[2016-10-29 22:33] VITALS: BP 102/63; PULSE 71; RESP 18; TEMP 100.1; O2SAT 96
[2016-10-29] MEDS: DOCUSATE SODIUM 50 MG/SENNA 8.6 MG TAB PO SCH (22:37)
[2016-10-29] MEDS: FAMOTIDINE 20 MG TAB PO SCH (22:37)
[2016-10-29] MEDS: METOPROLOL TARTRATE 50 MG TAB PO SCH (22:38)
[2016-10-29] MEDS: HEPARIN SODIUM - SQ 10,000 UNITS/ML VIAL SQ SCH (22:38)
[2016-10-30] VITALS (10 sets, daily range): BP systolic 117–160; BP diastolic 65–84; PULSE 51–72; RESP 17–18; TEMP 97.6–98.8; O2SAT 96–99
[2016-10-30] MEDS: NITROGLYCERIN 2% OINT 1 GM PACKET TOPICAL SCH ×2 (06:19)
[2016-10-30 08:21] LABS: BICARBONATE 28.3 MEQ/L (21.0-32.0); POTASSIUM 3.8 MEQ/L (3.5-5.1)
[2016-10-30] MEDS: ATORVASTATIN 10 MG TAB PO SCH (08:31)
[2016-10-30] MEDS: METOPROLOL TARTRATE 50 MG TAB PO SCH ×2 (08:32→20:58)
[2016-10-30] MEDS: ASPIRIN 81 MG CHEW TAB PO SCH (08:32)
[2016-10-30] MEDS: LISINOPRIL 20 MG TAB PO SCH (08:32)
[2016-10-30] MEDS: FAMOTIDINE 20 MG TAB PO SCH (08:32)
[2016-10-30] MEDS: DOCUSATE SODIUM 50 MG/SENNA 8.6 MG TAB PO SCH ×2 (08:33→20:58)
[2016-10-30] MEDS: HEPARIN SODIUM - SQ 10,000 UNITS/ML VIAL SQ SCH ×2 (08:33→20:58)
[2016-10-30] MEDS: SODIUM CHLORIDE 0.9% FLUSH 10 ML FLUSH IV FLUSH SCH ×2 (08:38→21:03)
--- NOTE | 2016-10-30 11:11 | ECHRPT ---
Indication: chest pain CONCLUSIONS Normal left ventricular size. Mild concentric left ventricular hypertrophy. The left ventricular systolic function is low normal with an estimated ejection fraction in the rang e of 50- 55%. Mild mitral valve regurgitation. There is mild tricuspid valve regurgitation. BP: 115 / 55 HR: 62 Rhythm: Sinus MEASUREMENTS (Male / Female) Normal Values Technical Quality:Excellent 2D ECHO LV Diastolic Diameter PLAX 4.3 cm 4.2 - 5.9 / 3.9 - 5.3 cm LV Systolic Diameter PLAX 3.4 cm IVS Diastolic Thickness 1.8 cm 0.6 - 1.0 / 0.6 - 0.9 cm LVPW Diastolic Thickness 1.5 cm 0.6 - 1.0 / 0.6 - 0.9 cm LV Relative Wall Thickness 0.8 RV Internal Dim ED PLAX 3.2 cm M-MODE Aortic Root Diameter MM 4.4 cm LA Systolic Diameter MM 5.5 cm LA Ao Ratio MM 1.3 AV Cusp Separation MM 2.3 cm DOPPLER Mitral E Point Velocity 70.1 cm/s LV E' Lateral Velocity 9.7 cm/s Mitral E to LV E' Lateral Ratio 7.3 LV E' Septal Velocity 5.9 cm/s Mitral E to LV E' Septal Ratio 11.8 TR Peak Velocity 410.0 cm/s TR Peak Gradient 67.2 mmHg FINDINGS LEFT VENTRICLE Normal left ventricular size. Mild concentric left ventricular hypertrophy. The left ventricular systolic function is low normal with an estimated ejection fraction in the rang e of 50- 55%. MITRAL VALVE Mild mitral valve regurgitation. Structurally normal mitral valve. TRICUSPID VALVE Structurally normal tricuspid valve. There is mild tricuspid valve regurgitation. There is estimated [id number] pulmonary hypertension present (range 60-70 mmHg). Dariusz Argueta MD (Electronically Signed) Final Date:30 October 2016 11:10
--- NOTE | 2016-10-30 12:20 | PD.CONS ---
HPI History of Present Illness This is a 66 year old male who presented to the ER for evaluation of chest pain. He has a history of CVA and is a poor historian, although he seems to be alert and oriented to self and place. He states that he has been having chest pain for the past 2-3 months. This is an intermittent sharp pain in the left anterior chest and no radiation. It occurs several times a day, although he cannot tell me if it is related to movement/activity, although he does feel that it is related to food intake. He has a history of coronary artery disease , congestive heart failure, and is on anticoagulation for paroxysmal atrial fibrillation. He has been evaluated by cardiology and they feel that his atypical chest pain is most likely of GI etiology and recommended GI workup. The patient does note that he vomited "a mouth full" of red blood about 3-4 weeks ago. He only had the one incident. He denies any heartburn or reflux or abdominal pain. He denies any diarrhea or constipation, but states that his stool has been dark, almost black, for a few days. He has a remote history of peptic ulcer disease back in 1976. He does not take any medicine for his stomach at this time. He is unsure if he has ever had a colonoscopy. He does take Warfarin at home, although his INR is 1.3. He denies decreased appetite or weight loss. He does have a history of ETOH use, drinking several beers 2- 3x a week. He also takes one Ibuprofen for arthritic pain about 1-2 times a week. PFSH Past Medical History CAD/AL CHF Paroxysmal atrial fibrillation HTN Hyperlipidemia DM CVA Asthma COPD Remote hx of PUD Past Surgical History Right inguinal hernia Cyst removed from back ? Colon procedure- pt does not know Coded Allergies: Penicillin (Verified Allergy, Mild, 10/29/16) Medications Allergies Coded Allergies Type Severity Reaction Last Updated Verified Penicillin Allergy Mild 10/29/16 Yes Active Scripts Medications Dose Route/Sig Days Date Category Metoprolol Tartrate 50 Mg Tab 50 Mg PO BID 10/29/16 Reported Lisinopril 20 Mg Tab 20 Mg PO DAILY 10/29/16 Reported Ergocalciferol 50,000 Unit Cap 50,000 Units PO Q7D 10/29/16 Reported Warfarin 4 Mg Tab 4 Mg PO DAILY 10/29/16 Reported Family History Unable to obtain Social History Drinks 2-3 beers 2-3 times a week. Past tobacco use, unclear when he quit Review of Systems Constitutional: COMPLAINS OF: Fatigue, DENIES: Weight loss, Change in appetite Respiratory: DENIES: Cough, Shortness of breath Cardiovascular: COMPLAINS OF: Chest pain, DENIES: Palpitations Gastrointestinal: COMPLAINS OF: Black stools, Nausea, Vomiting, Hematemesis, DENIES: Abdominal pain, Bloody stools, Constipation, Diarrhea, Anorexia, Swelling of Abdomen, Heartburn Musculoskeletal: COMPLAINS OF: Joint pain Integumentary: DENIES: Rash Hematologic/lymphatic: DENIES: Bruising Neurologic: COMPLAINS OF: Headache Psychiatric: DENIES: Confusion (poor historian) GI Exam Vitals I&O Vital Signs Date Time Temp Pulse Resp B/P Pulse Ox O2 Delivery O2 Flow Rate FiO2 10/30/16 08:49 58 10/30/16 08:33 97.8 59 18 144/76 98 10/30/16 08:30 72 10/30/16 07:58 96 21 10/30/16 04:00 98.8 61 17 117/65 97 10/30/16 02:00 55 10/29/16 22:33 100.1 71 18 102/63 96 10/29/16 18:38 62 16 133/64 97 Room Air 10/29/16 14:01 62 14 115/55 99 Room Air 10/29/16 13:30 20 Imaging Last Impressions Brain MRI 10/29/16 1606 Signed Impressions: Service Date/Time: Saturday, October 29, 2016 17:33 - CONCLUSION: 1. No acute intracranial abnormalities identified. There are no findings to indicate recent ischemia. No mass is visualized. 2. Chronic changes include left parietal lobe encephalomalacia and partially cystic encephalomalacia in the left frontal lobe. Sher Kahn MD Head CT 10/29/16 1204 Signed Impressions: Service Date/Time: Saturday, October 29, 2016 15:21 - CONCLUSION: 1. Decreased attenuation posteriorly on the left possibly representing infarct however this could also represent vasogenic edema and underlying mass is not excluded. Postcontrast MR is warranted for further assessment. 2. Old, encephalomalacic infarct involving the left caudate nucleus. Francisco Srinivasan MD Chest X-Ray 10/29/16 1159 Signed Impressions: Service Date/Time: Saturday, October 29, 2016 12:24 - CONCLUSION: Increasing consolidative changes left base. Edin Srinivasan MD FACR Abdomen/Pelvis CT 10/29/16 1159 Signed Impressions: Service Date/Time: Saturday, October 29, 2016 15:18 - CONCLUSION: 1. Developing left lower lobe pneumonia versus aspiration. 2. Stomach is nearly completely decompressed with prominence of the gastric wall in the fundus and body of the stomach. Although this is likely related to incomplete gastric distention, gastritis or less likely an infiltrative process cannot be entirely excluded. Clinical correlation is recommended. Further evaluation may be performed with upper GI examination or endoscopy as clinically warranted. 3. Normal appendix. 4. Apparent interval enlargement of left adrenal mass now measuring 2.4 x 1.4 x 3.3 cm in comparison to remote prior CT examination of 2011. Further evaluation may be performed with adrenal mass protocol MRI or CT examination. Reuben Freeman MD Laboratory Test 10/29/16 10/29/16 10/29/16 10/30/16 13:20 15:59 18:48 01:18 Sodium Level 130 MEQ/L Potassium Level 4.9 MEQ/L Chloride Level 97 MEQ/L Carbon Dioxide Level 27.8 MEQ/L Anion Gap 5 MEQ/L Blood Urea Nitrogen 12 MG/DL Creatinine 0.83 MG/DL Estimat Glomerular Filtration 112 ML/MIN Rate Random Glucose 97 MG/DL Calcium Level 8.5 MG/DL Magnesium Level 2.4 MG/DL Total Bilirubin 0.7 MG/DL Aspartate Amino Transf 111 U/L (AST/SGOT) Alanine Aminotransferase 53 U/L (ALT/SGPT) Alkaline Phosphatase 55 U/L Total Creatine Kinase 306 U/L Creatine Kinase MB LESS THAN 0.5 NG/ML Troponin I LESS THAN 0.02 0.02 NG/ML 0.02 NG/ML NG/ML Total Protein 7.3 GM/DL Albumin 2.7 GM/DL Lipase 86 U/L Ethyl Alcohol Level LESS THAN 3 MG/DL Urine Color YELLOW Urine Turbidity CLEAR Urine pH 5.5 Urine Specific [place] 1.024 Urine Protein 30 mg/dL Urine Glucose (UA) NEG mg/dL Urine Ketones NEG mg/dL Urine Occult Blood NEG Urine Nitrite NEG Urine Bilirubin NEG Urine Urobilinogen 2.0 MG/DL Urine Leukocyte Esterase TRACE Urine RBC 1 /hpf Urine WBC 11 /hpf Urine Squamous Epithelial <1 /hpf Cells Urine Bacteria FEW /hpf Urine Hyaline Casts 1 /lpf Urine Mucus FEW /lpf Microscopic Urinalysis Comment CULTURE INDICATED Urine Opiates Screen POS Urine Barbiturates Screen NEG Urine Amphetamines Screen NEG Urine Benzodiazepines Screen NEG Urine Cocaine Screen NEG Urine Cannabinoids Screen NEG Test 10/30/16 06:29 Sodium Level 132 MEQ/L Potassium Level 3.8 MEQ/L Chloride Level 95 MEQ/L Carbon Dioxide Level 28.3 MEQ/L Anion Gap 9 MEQ/L Blood Urea Nitrogen 10 MG/DL Creatinine 0.78 MG/DL Estimat Glomerular Filtration 120 ML/MIN Rate Random Glucose 71 MG/DL Calcium Level 8.1 MG/DL Date/Time Procedure Status Source Growth 10/29/16 15:59 Urine Culture Received Urine Random Urine Pending Physical Examination HEENT: Normocephalic; atraumatic; no jaundice CHEST: CTA CARDIAC: RRR ABDOMEN: Soft, nondistended, nontender; no hepatosplenomegaly; bowel sounds are present in all four quadrants. EXTREMITIES: No clubbing, cyanosis, or edema. SKIN: Normal; no rash; no jaundice. FLEET MECHANIC: No focal deficits; alert and oriented to person and place. Poor historian Assessment and Plan Plan ASSESSMENT: - Upper GI Bleeding with melena and recent hematemesis. Remote hx of PUD. C/O atypical chest pain and reports hematemesis with red blood x 1 about 3-4 weeks ago. He also reports dark black stools for a few days. He takes ibuprofen, 1 tab 1-2 times a week. He also takes Coumadin, although his inr is 1.3. He drinks 2-3 beers 2-3 times a week. HH is stable. Change pepcid to protonix. EGD in am. - Atypical chest pain. S/P evaluation by cardiology, feels more GI related and recommended GI workup. - Left lower lobe consolidation, abx, nebs per attending. - Paroxysmal atrial fibrillation. On coumadin at home, INR 1.3. On heparin. - Hyponatremia, CAD, CHF, HTN, DM, Hyperlipidemia, Asthma, COPD per attending. PLAN: - Plan for egd in am - Obtain consents - NPO after MN - Hold heparin after MN - Change pepcid to protonix daily - Monitor labs - Supportive care - Further recommendations to follow based on results of above - Pt seen and examined by Dr. Hamilton and myself and this note is written on his behalf Jayla Hunt Oct 30, 2016 12:19
--- NOTE | 2016-10-30 13:14 | HHI.PR ---
Subjective Remarks resting in bed alert, talking with ration denies any pain feeling better with IV dydration (Lisbeth Porter) Objective Objective Results - Vital Signs Date Time Temp Pulse Resp B/P Pulse Ox O2 Delivery O2 Flow Rate FiO2 10/30/16 12:44 97.6 51 18 127/77 98 10/30/16 08:49 58 10/30/16 08:33 97.8 59 18 144/76 98 10/30/16 08:30 72 10/30/16 07:58 96 21 10/30/16 04:00 98.8 61 17 117/65 97 10/30/16 02:00 55 10/29/16 22:33 100.1 71 18 102/63 96 10/29/16 18:38 62 16 133/64 97 Room Air 10/29/16 14:01 62 14 115/55 99 Room Air 10/29/16 13:30 20 (Lisbeth Porter) Result Diagram: 10/29/16 1200 10/30/16 0629 ROS General: Fatigue, Weakness, Other (10 point ROS done. Positives noted) Cardiac: Chest Pain (improved) Pulmonary: SOB (occ. exertional) GI: BM (today) Neuro/MS: Confusion (improved.) (Lisbeth Porter) Physical Exam Physical Exam PHYSICAL EXAMINATION GENERAL: This is an male who appears to be in no acute distressresting in bed He is awake, and responsive HEAD: Normocephalic no facial droop OROPHARYNGEAL: Oropharynx clear NECK: Supple. No nuchal rigidity or lymphadenopathy. Trachea midline without deviation. CARDIAC: Regular rhythm, regular rate, S1 and S2 are heard. LUNGS: Mild diminished lower lobe BS to auscultation bilaterally. no wheezes ABDOMEN: Soft, nontender, no organomegaly or masses. Bowel sounds are heard EXTREMITIES: no edema. Pulses equal NEUROLOGICAL: Patient mood and affect more appropriate. SKIN:Warm and moist (Lisbeth Porter) A/P Assessment and Plan 1. Altered mental status. 2. Chest pain, rule out myocardial infarction and/or cardiac event. 3. Hypertension. 4. Probable pneumonia. 5. Abdominal pain with possible gastritis. 6. History of atrial fibrillation with subtherapeutic anticoagulation level. 7. History of cerebrovascular accident. 8. Hyperlipidemia. vitals reviewed, pulse 59, stable, regular SR labs reviewed, NA 132, recieving IVFs U/A culture pending, Coumadin therapy restarted. No acute bleeding noted. Pharmacy to dose pna, antibiotic therapy, O2 , duonebs , encourage to turn, cough, deep breath. No acute SOB noted. abd pain, improved, denies any nausea or vomiting chest pain improved, Appreciate cardia consult, feels the pain is probable GI and recommend consult. Done today Increase activity, up in chair today. AMS, answers questions appropriately today. Know where he is and can relate to his symptoms. Neuro consult pending Making orange clear urine. 500cc > in urinal. Monitor comorbidities with medical management. Discussed plan of care with Dr. Noel, seen on his behalf D/W nurse D/W patient (Lisbeth Porter) Assessment and Plan Patient seen and examined as above Labs and radiological data reviewed Medications reviewed Discussed with florist manager on the floor Discussed with mechanical expert for endoscopy tomorrow Plan of care discussed with OSMAN discussed with RN Discussed with patient and on the phone Condition guarded (Crystal Noel MD) Lisbeth Porter Oct 30, 2016 13:13 Crystal Noel MD Oct 30, 2016 16:31
[2016-10-30] MEDS ORDERED: WARFARIN SOD 4 MG TAB PO SCH (13:15)
--- NOTE | 2016-10-30 13:43 | PD.CARD.PN ---
Subjective Subjective Remarks No CP or SOB, feels better Objective Medications Current Medications Medications (Trade) Dose Ordered Sig/Michelle Route Start Time Stop Time Status Last Admin (NS Flush) 2 ml UNSCH PRN IV FLUSH 10/29/16 18:45 (NS Flush) 2 ml BID IV FLUSH 10/29/16 21:00 (Tylenol) 650 mg Q4H PRN PO 10/29/16 18:45 (Zofran Inj) 4 mg Q6H PRN IVP 10/29/16 18:45 (Heparin Inj) 5,000 units Q12H SQ 10/29/16 21:00 Future Hold 10/30/16 08:33 (Narcan Inj) 0.4 mg UNSCH PRN IV 10/29/16 18:45 (Yaritza-Colace) 1 tab BID PO 10/29/16 21:00 10/30/16 08:33 (Milk Of Magnesia Liq) 30 ml Q12H PRN PO 10/29/16 18:45 (Senokot) 17.2 mg Q12H PRN PO 10/29/16 18:45 (Dulcolax Supp) 10 mg DAILY PRN RECTAL 10/29/16 18:45 (Lactulose Liq) 30 ml DAILY PRN PO 10/29/16 18:45 (Aspirin Chew) 162 mg DAILY PO 10/29/16 18:45 10/30/16 08:32 (Nitrostat Sl) 0.4 mg Q5M PRN SL 10/29/16 18:45 (Lipitor) 10 mg DAILY PO 10/30/16 09:00 10/30/16 08:31 (Prinivil) 20 mg DAILY PO 10/30/16 09:00 10/30/16 08:32 (Lopressor) 50 mg BID PO 10/29/16 21:00 10/30/16 08:32 Ergocalciferol 20078 units 50,000 units Q7D PO 10/29/16 21:00 Ceftriaxone Sodium 1000 mg/ Sodium Chloride 100 ml @ 200 mls/hr Q24H IV 10/30/16 16:00 Azithromycin 250 mg/Sodium Chloride 250 ml @ 250 mls/hr Q24H IV 10/30/16 15:00 (NS 1000 ml Inj) 1,000 ml @ 42 mls/hr [id number] IV 10/29/16 19:45 10/29/16 20:06 (Protonix Inj) 40 mg Q12H IV PUSH 10/30/16 13:00 Warfarin Sodium 4 mg 4 mg DAILY PO 10/30/16 13:15 UNV (Coumadin Consult Pharmacy) 0 ml @ 0 mls/hr UNSCH OTHER 10/30/16 13:15 UNV Vital Signs / I&O Vital Signs Date Time Temp Pulse Resp B/P Pulse Ox O2 Delivery O2 Flow Rate FiO2 10/30/16 12:44 97.6 51 18 127/77 98 10/30/16 08:49 58 10/30/16 08:33 97.8 59 18 144/76 98 10/30/16 08:30 72 10/30/16 07:58 96 21 10/30/16 04:00 98.8 61 17 117/65 97 10/30/16 02:00 55 10/29/16 22:33 100.1 71 18 102/63 96 10/29/16 18:38 62 16 133/64 97 Room Air 10/29/16 14:01 62 14 115/55 99 Room Air Physical Exam GENERAL: In NAD SKIN: Warm and dry. HEAD: Normocephalic. EYES: No scleral icterus. No injection or drainage. NECK: Supple, trachea midline. No JVD or lymphadenopathy. CARDIOVASCULAR: Regular rate and rhythm without murmurs, gallops, or rubs. RESPIRATORY: Breath sounds equal bilaterally. No accessory muscle use. GASTROINTESTINAL: Abdomen soft, non-tender, nondistended. MUSCULOSKELETAL: No cyanosis, or edema. Laboratory Laboratory Tests Test 10/29/16 10/29/16 10/30/16 10/30/16 15:59 18:48 01:18 06:29 Urine Color YELLOW Urine Turbidity CLEAR Urine pH 5.5 Urine Specific [place] 1.024 Urine Protein 30 mg/dL Urine Glucose (UA) NEG mg/dL Urine Ketones NEG mg/dL Urine Occult Blood NEG Urine Nitrite NEG Urine Bilirubin NEG Urine Urobilinogen 2.0 MG/DL Urine Leukocyte Esterase TRACE Urine RBC 1 /hpf Urine WBC 11 /hpf Urine Squamous Epithelial <1 /hpf Cells Urine Bacteria FEW /hpf Urine Hyaline Casts 1 /lpf Urine Mucus FEW /lpf Microscopic Urinalysis Comment CULTURE INDICATED Urine Opiates Screen POS Urine Barbiturates Screen NEG Urine Amphetamines Screen NEG Urine Benzodiazepines Screen NEG Urine Cocaine Screen NEG Urine Cannabinoids Screen NEG Troponin I 0.02 NG/ML 0.02 NG/ML Sodium Level 132 MEQ/L Potassium Level 3.8 MEQ/L Chloride Level 95 MEQ/L Carbon Dioxide Level 28.3 MEQ/L Anion Gap 9 MEQ/L Blood Urea Nitrogen 10 MG/DL Creatinine 0.78 MG/DL Estimat Glomerular Filtration 120 ML/MIN Rate Random Glucose 71 MG/DL Calcium Level 8.1 MG/DL Imaging Last Impressions Brain MRI 10/29/16 1606 Signed Impressions: Service Date/Time: Saturday, October 29, 2016 17:33 - CONCLUSION: 1. No acute intracranial abnormalities identified. There are no findings to indicate recent ischemia. No mass is visualized. 2. Chronic changes include left parietal lobe encephalomalacia and partially cystic encephalomalacia in the left frontal lobe. Sher Kahn MD Head CT 10/29/16 1204 Signed Impressions: Service Date/Time: Saturday, October 29, 2016 15:21 - CONCLUSION: 1. Decreased attenuation posteriorly on the left possibly representing infarct however this could also represent vasogenic edema and underlying mass is not excluded. Postcontrast MR is warranted for further assessment. 2. Old, encephalomalacic infarct involving the left caudate nucleus. Francisco Srinivasan MD Chest X-Ray 10/29/16 1159 Signed Impressions: Service Date/Time: Saturday, October 29, 2016 12:24 - CONCLUSION: Increasing consolidative changes left base. Edin Srinivasan MD FACR Abdomen/Pelvis CT 10/29/16 1159 Signed Impressions: Service Date/Time: Saturday, October 29, 2016 15:18 - CONCLUSION: 1. Developing left lower lobe pneumonia versus aspiration. 2. Stomach is nearly completely decompressed with prominence of the gastric wall in the fundus and body of the stomach. Although this is likely related to incomplete gastric distention, gastritis or less likely an infiltrative process cannot be entirely excluded. Clinical correlation is recommended. Further evaluation may be performed with upper GI examination or endoscopy as clinically warranted. 3. Normal appendix. 4. Apparent interval enlargement of left adrenal mass now measuring 2.4 x 1.4 x 3.3 cm in comparison to remote prior CT examination of 2011. Further evaluation may be performed with adrenal mass protocol MRI or CT examination. Reuben Freeman MD Assessment and Plan Problem List: (1) Chest pain (2) CAD (coronary artery disease) (3) History of CVA (cerebrovascular accident) (4) Hypertension (5) Hyperlipidemia Assessment and Plan Echo w nl LV fx. Symptoms improved. CP is likely noncardiac, probably of GI origin. GI eval in progress. Pt cleared for endoscopy from cardiac standpoint. Problem Qualifiers (1) Chest pain: Qualified Code: R07.9 - Chest pain, unspecified type Nirmala Hay MD Oct 30, 2016 13:43
--- NOTE | 2016-10-30 13:52 | EKG ---
Date Performed: 10/30/2016 Time Performed: 11:13:13 PTAGE: 66 years EKG: SINUS BRADYCARDIA BORDERLINE ECG Compared to prior tracing no significant change PREVIOUS TRACING : 10/29/2016 19.11 DOCTOR: Irena Shabazz Interpretating Date/Time 10/30/2016 13:46:06
--- NOTE | 2016-10-30 13:52 | EKG ---
Date Performed: 10/29/2016 Time Performed: 19:11:21 PTAGE: 66 years EKG: Sinus rhythm NORMAL ECG Compared to prior tracing no significant change PREVIOUS TRACING : 10/29/2016 12.04 DOCTOR: Irena Shabazz Interpretating Date/Time 10/30/2016 13:45:57
[2016-10-30] MEDS: PANTOPRAZOLE SODIUM 40 MG VIAL IV PUSH SCH (13:53)
[2016-10-30] MEDS: AZITHROMYCIN INJ 250 MG in SODIUM CHLOR 0.9% 250 ML INJ 250 ML IV SCH (14:00)
[2016-10-30] MEDS ORDERED: PEG (High)/E-LYTE SOLN 4000 ML BTL PO ONE (14:30)
--- NOTE | 2016-10-30 15:32 | EKG ---
Date Performed: 10/29/2016 Time Performed: 12:04:19 PTAGE: 66 years EKG: Sinus rhythm Compared to previous tracing, the atrial fibrillation has resolved NORMAL ECG PREVIOUS TRACING : 11/13/2014 21.33 DOCTOR: Irena Shabazz Interpretating Date/Time 10/30/2016 15:30:45
[2016-10-30] MEDS: cefTRIAXone INJ 1,000 MG in SODIUM CHLORIDE 0.9% INJ 100 ML IV SCH (16:29)
--- NOTE | 2016-10-30 17:36 | MB ---
cc: SADIQ RALPH M.D. DATE OF CONSULTATION: 10/30/2016. REASON FOR CONSULTATION: Mental status change. HISTORY OF PRESENT ILLNESS: Mr. Stevens is a 66-year man who was admitted for atypical chest pain and mental status change. He was confused and had disorientation and poor memory. He states his memory is improving and almost back to normal at the present time. He had no focal symptoms. No headaches. It was found that his chest pain was most likely non-cardiac in nature. He was also found to have probable pneumonia. PAST MEDICAL HISTORY: 1. History of stroke in the past. 2. History of atrial fibrillation. 3. Hyperlipidemia. CURRENT MEDICATIONS: 1. Ceftriaxone. 2. Azithromycin. 3. He takes coumadin for atrial fibrillation. 4. Lipitor. 5. Protonix. 6. Prinivil. 7. Lopressor. 8. Drisdol. 9. Zofran PRN. NEUROLOGICAL EXAMINATION: VITAL SIGNS: Blood pressure is 134/66, pulse 58, respirations 18, temperature 97.7 degrees. HIGHER CORTICAL FUNCTIONS: He is alert and oriented times three. He has normal recall. He can follow commands. His speech is fluent. CRANIAL NERVES: Normal. MOTOR: On motor exam, there is no focal deficit. REFLEXES: Symmetric with no asymmetries. IMAGING STUDIES: MRI of the brain: No acute change is identified. There is encephalomalacia left parietal lobe partially cystic encephalomalacia left frontal lobe, probably from the previous stroke. LABORATORY DATA: White count 6100, hemoglobin 14, hematocrit 42%, platelets 237,000. Sodium is 132, potassium 3.8, chloride 95, CO2 is 28.3, creatinine 0.78, glucose is 71. Urinalysis: pH is 5.5, specific gravity 1.024, 11 WBCs. IMPRESSION: Probable encephalopathy possibly related to pneumonia and dehydration. No acute stroke identified. RECOMMENDATIONS: Continue current therapy. The patient is improving. I do not feel any other neurologic evaluation is required at the present time. MD MARCO Reddy/NITIN /5:21 PM /5:28 PM
[2016-10-30] MEDS: SODIUM CHLOR 0.9% 1000 ML INJ 1,000 ML IV SCH (22:03)
[2016-10-31] VITALS (10 sets, daily range): BP systolic 143–179; BP diastolic 80–84; PULSE 51–81; RESP 17–18; TEMP 96.6–98.4; O2SAT 97–100
[2016-10-31] MEDS: PANTOPRAZOLE SODIUM 40 MG VIAL IV PUSH SCH ×2 (01:16→12:12)
[2016-10-31 07:03] LABS: INTERNATIONAL NORMALIZED RATIO 1.6 RATIO
[2016-10-31 07:10] LABS: AUTOMATED NEUTROPHIL # 1.6 TH/MM3 (1.8-7.7); BASOPHIL % 0.5 % (0.0-2.0); EOSINOPHIL # 0.3 TH/MM3 (0-0.4); EOSINOPHIL % 7.8 % (0.0-4.0); HEMATOCRIT 40.7 % (39.0-51.0); HEMO FLAGS DIFF FINAL; LYMPH % 34.3 % (9.0-44.0); LYMPHOCYTE # 1.2 TH/MM3 (1.0-4.8); MEAN CELL VOLUME 83.4 FL (80.0-100.0); MEAN CORPUSCULAR HEMOGLOBIN 28.7 PG (27.0-34.0); MEAN CORPUSCULAR HGB CONC 34.4 % (32.0-36.0); MONO % 10.2 % (0.0-8.0); NEUT % 47.2 % (16.0-70.0); PLATELET COUNT 238 TH/MM3 (150-450); RED BLOOD COUNT 4.87 MIL/MM3 (4.50-5.90); RED CELL DISTRIBUTION WIDTH 13.4 % (11.6-17.2); WHITE BLOOD COUNT 3.5 TH/MM3 (4.0-11.0)
[2016-10-31 07:21] LABS: BICARBONATE 30.4 MEQ/L (21.0-32.0); POTASSIUM 3.5 MEQ/L (3.5-5.1)
--- NOTE | 2016-10-31 07:57 | HHI.PR ---
Review/Management Diagnosis Metabolic Encephalopathy---improving Diagnosis/Plan: Subjective Subjective Comments No acute events reported He feels memory and cognition improving back to his baseline Active Medications Current Medications Medications (Trade) Dose Ordered Sig/Michelle Route Start Time Stop Time Status Last Admin (NS Flush) 2 ml UNSCH PRN IV FLUSH 10/29/16 18:45 (NS Flush) 2 ml BID IV FLUSH 10/29/16 21:00 10/30/16 21:03 (Tylenol) 650 mg Q4H PRN PO 10/29/16 18:45 (Zofran Inj) 4 mg Q6H PRN IVP 10/29/16 18:45 (Heparin Inj) 5,000 units Q12H SQ 10/29/16 21:00 Hold 10/30/16 20:58 (Narcan Inj) 0.4 mg UNSCH PRN IV 10/29/16 18:45 (Yaritza-Colace) 1 tab BID PO 10/29/16 21:00 10/30/16 08:33 (Milk Of Magnesia Liq) 30 ml Q12H PRN PO 10/29/16 18:45 (Senokot) 17.2 mg Q12H PRN PO 10/29/16 18:45 (Dulcolax Supp) 10 mg DAILY PRN RECTAL 10/29/16 18:45 (Lactulose Liq) 30 ml DAILY PRN PO 10/29/16 18:45 (Aspirin Chew) 162 mg DAILY PO 10/29/16 18:45 10/30/16 08:32 (Nitrostat Sl) 0.4 mg Q5M PRN SL 10/29/16 18:45 (Lipitor) 10 mg DAILY PO 10/30/16 09:00 10/30/16 08:31 (Prinivil) 20 mg DAILY PO 10/30/16 09:00 10/30/16 08:32 (Lopressor) 50 mg BID PO 10/29/16 21:00 10/30/16 20:58 Ergocalciferol 86496 units 50,000 units Q7D PO 10/29/16 21:00 Ceftriaxone Sodium 1000 mg/ Sodium Chloride 100 ml @ 200 mls/hr Q24H IV 10/30/16 16:00 10/30/16 16:29 Azithromycin 250 mg/Sodium Chloride 250 ml @ 250 mls/hr Q24H IV 10/30/16 15:00 10/30/16 14:00 (NS 1000 ml Inj) 1,000 ml @ 42 mls/hr [id number] IV 10/29/16 19:45 10/30/16 22:03 Pantoprazole Sodium 40 mg 40 mg Q12H IV PUSH 10/30/16 13:00 10/31/16 01:16 (Coumadin Consult Pharmacy) 0 ml @ 0 mls/hr UNSCH OTHER 10/30/16 13:15 Allergies Allergies Coded Allergies Penicillin (Verified Allergy, Mild, 10/29/16) Exam I&O / VS 10/30/16 10/30/16 10/31/16 15:00 23:00 07:00 Intake Total 1309 ml 254 ml Output Total 300 ml 200 ml Balance 1009 ml 54 ml Intake Oral 900 ml IV Total 409 ml 254 ml Output Urine Total 300 ml 200 ml # Voids 1 Vital Signs Date Time Temp Pulse Resp B/P Pulse Ox O2 Delivery O2 Flow Rate FiO2 10/31/16 04:00 98.3 67 18 155/84 98 10/31/16 00:00 98.4 58 17 153/83 97 10/30/16 21:00 56 10/30/16 20:00 98.5 61 18 160/84 99 10/30/16 16:17 97.7 58 18 134/76 98 10/30/16 12:44 97.6 51 18 127/77 98 10/30/16 08:49 58 10/30/16 08:33 97.8 59 18 144/76 98 10/30/16 08:30 72 10/30/16 07:58 96 21 Exam Comments alert, oriented times 3, speech fluent, comprehension intact. responds appropriately to questions CN 2-12 normal MOTOR 5/5 bilaterally Objective Micro and Labs Laboratory Tests Test 10/31/16 06:01 White Blood Count 3.5 Red Blood Count 4.87 Hemoglobin 14.0 Hematocrit 40.7 Mean Corpuscular Volume 83.4 Mean Corpuscular Hemoglobin 28.7 Mean Corpuscular Hemoglobin 34.4 Concent Red Cell Distribution Width 13.4 Platelet Count 238 Mean Platelet Volume 8.1 Neutrophils (%) (Auto) 47.2 Lymphocytes (%) (Auto) 34.3 Monocytes (%) (Auto) 10.2 Eosinophils (%) (Auto) 7.8 Basophils (%) (Auto) 0.5 Neutrophils # (Auto) 1.6 Lymphocytes # (Auto) 1.2 Monocytes # (Auto) 0.4 Eosinophils # (Auto) 0.3 Basophils # (Auto) 0.0 CBC Comment DIFF FINAL Differential Comment Prothrombin Time 18.0 Prothromb Time International 1.6 Ratio Sodium Level 136 Potassium Level 3.5 Chloride Level 99 Carbon Dioxide Level 30.4 Anion Gap 7 Blood Urea Nitrogen 5 Creatinine 0.78 Estimat Glomerular Filtration 120 Rate Random Glucose 81 Calcium Level 8.8 Date/Time Procedure Status Source Growth 10/30/16 14:10 Stool Occult Blood (MALACHI) - Final Complete Stool Stool HEMOCCULT NEGATIVE 10/29/16 15:59 Urine Culture - Preliminary Resulted Urine Random Urine <10,000 CFU/ML GRAM POSITIVE RYAN Pepe Moya PhD Oct 31, 2016 07:57
[2016-10-31] MEDS: ASPIRIN 81 MG CHEW TAB PO SCH (09:00)
[2016-10-31] MEDS ORDERED: SIMETHICONE SUSP DROPS 40 MG/0.6 ML 30 ML BTL ONE (10:20)
[2016-10-31] MEDS ORDERED: PROPOFOL 200 MG/20 ML AMP IV PUSH ONE (10:33)
--- NOTE | 2016-10-31 10:44 | HHI.GIFU ---
Subjective Remarks Immediate postop note: EGD with biopsy and Colonoscopy with snare polypectomy Indication: Chest pain, Screening for colon cancer Meds: MAC Location: Endo Unit Findings: -Esophagus: normal -Stomach: mild gastritis. Biopsy from Antrum - Duodenum: normal - Cecum: possible small submucosal lesion - Transverse colon: 1.5cm polyp on short stalk. snare with cautery two pieces. Recovered - Scattered diverticulosis - Rectum: normal Objective Vitals I&O Vital Signs Date Time Temp Pulse Resp B/P Pulse Ox O2 Delivery O2 Flow Rate FiO2 10/31/16 09:19 97.9 52 18 149/83 99 10/31/16 08:00 97.9 52 18 149/83 99 10/31/16 04:00 98.3 67 18 155/84 98 10/31/16 00:00 98.4 58 17 153/83 97 10/30/16 21:00 56 10/30/16 20:00 98.5 61 18 160/84 99 10/30/16 16:17 97.7 58 18 134/76 98 10/30/16 12:44 97.6 51 18 127/77 98 I/O 10/30/16 10/30/16 10/30/16 10/31/16 10/31/16 10/31/16 07:00 15:00 23:00 07:00 15:00 23:00 Intake Total 1309 ml 254 ml Output Total 300 ml 200 ml Balance 1009 ml 54 ml Intake Oral 900 ml IV Total 409 ml 254 ml Output Urine Total 300 ml 200 ml # Voids 1 Laboratory Laboratory Tests Test 10/31/16 06:01 White Blood Count 3.5 Red Blood Count 4.87 Hemoglobin 14.0 Hematocrit 40.7 Mean Corpuscular Volume 83.4 Mean Corpuscular Hemoglobin 28.7 Mean Corpuscular Hemoglobin 34.4 Concent Red Cell Distribution Width 13.4 Platelet Count 238 Mean Platelet Volume 8.1 Neutrophils (%) (Auto) 47.2 Lymphocytes (%) (Auto) 34.3 Monocytes (%) (Auto) 10.2 Eosinophils (%) (Auto) 7.8 Basophils (%) (Auto) 0.5 Neutrophils # (Auto) 1.6 Lymphocytes # (Auto) 1.2 Monocytes # (Auto) 0.4 Eosinophils # (Auto) 0.3 Basophils # (Auto) 0.0 CBC Comment DIFF FINAL Differential Comment Prothrombin Time 18.0 Prothromb Time International 1.6 Ratio Sodium Level 136 Potassium Level 3.5 Chloride Level 99 Carbon Dioxide Level 30.4 Anion Gap 7 Blood Urea Nitrogen 5 Creatinine 0.78 Estimat Glomerular Filtration 120 Rate Random Glucose 81 Calcium Level 8.8 Date/Time Procedure Status Source Growth 10/30/16 14:10 Stool Occult Blood (MALACHI) - Final Complete Stool Stool HEMOCCULT NEGATIVE 10/29/16 15:59 Urine Culture - Final Complete Urine Random Urine 10-50,000 CFU/ML MIXED GRAM POSITIVE ... Physical Exam HEENT: Pupils round and reactive to light; normocephalic; atraumatic; no jaundice. Throat is clear. NECK: Neck is supple, no JVD, no lymphadenopathy. CHEST: Chest is clear to auscultation and percussion. CARDIAC: Regular rate and rhythm with no murmur gallop or rubs. ABDOMEN: Soft, nondistended, nontender; no hepatosplenomegaly; bowel sounds are present in all four quadrants. EXTREMITIES: No clubbing, cyanosis, or edema. SKIN: Normal; no rash; no jaundice. PROPERTY WORKER: No focal deficits; alert and oriented times three. Assessment and Plan Plan ASSESSMENT: - Upper GI Bleeding with melena and recent hematemesis. Remote hx of PUD. C/O atypical chest pain and reports hematemesis with red blood x 1 about 3-4 weeks ago. He also reports dark black stools for a few days. He takes ibuprofen, 1 tab 1-2 times a week. He also takes Coumadin, although his inr is 1.3. He drinks 2-3 beers 2-3 times a week. HH is stable. Change pepcid to protonix. EGD in am. - Atypical chest pain. S/P evaluation by cardiology, feels more GI related and recommended GI workup. - Left lower lobe consolidation, abx, nebs per attending. - Paroxysmal atrial fibrillation. On coumadin at home, INR 1.3. On heparin. - Hyponatremia, CAD, CHF, HTN, DM, Hyperlipidemia, Asthma, COPD per attending. - EGD and Colonoscopy performed. Polyp removed from transverse colon. Cautery used. No cause for chest pain found. Mild gastritis, biopsy taken PLAN: - Continue to hold heparin and coumadin. - Change pepcid to protonix daily - Monitor labs - Supportive care - Work up gallbladder probably as outpatient. Nate Hamilton MD Oct 31, 2016 10:44
--- NOTE | 2016-10-31 11:02 | HHI.PR ---
Subjective Remarks EDG today. alert responsive oriented to person, place, simple commands, some of his current situation ( Lisbeth Porter) Objective Objective Results - Vital Signs Date Time Temp Pulse Resp B/P Pulse Ox O2 Delivery O2 Flow Rate FiO2 10/31/16 09:19 97.9 52 18 149/83 99 10/31/16 08:00 97.9 52 18 149/83 99 10/31/16 04:00 98.3 67 18 155/84 98 10/31/16 00:00 98.4 58 17 153/83 97 10/30/16 21:00 56 10/30/16 20:00 98.5 61 18 160/84 99 10/30/16 16:17 97.7 58 18 134/76 98 10/30/16 12:44 97.6 51 18 127/77 98 I/O 10/30/16 10/30/16 10/30/16 10/31/16 10/31/16 10/31/16 07:00 15:00 23:00 07:00 15:00 23:00 Intake Total 1309 ml 254 ml Output Total 300 ml 200 ml Balance 1009 ml 54 ml Intake Oral 900 ml IV Total 409 ml 254 ml Output Urine Total 300 ml 200 ml # Voids 1 (Lisbeth Porter) Result Diagram: 10/31/16 0601 10/31/16 0601 ROS General: Weakness (improving), Other (10 point ROS done, positives noted, no chest pain, abd pain, no SOB at rest.) Cardiac: Other (bradycardia) Pulmonary: Cough (occasional) GI: BM (regimen, negative hemoccult) (Lisbeth Porter) Physical Exam Physical Exam PHYSICAL EXAMINATION GENERAL: This is a elderly male who appears to be in no acute distressat rest He is alert and awake, HEAD: Normocephalic without any lesion or mass noted. Facial features appear symmetric. OROPHARYNGEAL: Oropharynx clear NECK: Supple. No nuchal rigidity or lymphadenopathy. Trachea midline without deviation. CARDIAC: Regular rhythm, regular rate, S1 and S2 are heard. LUNGS: diminished to auscultation bilaterally. Low to moderate air volumes ABDOMEN: Soft, nontender, no organomegaly or masses. Bowel sounds heard, soft EXTREMITIES: no edema. Pulses equal bilateral. NEUROLOGICAL: Patient mood and affect appropriate. No focal deficit SKIN:Warm and moist (Lisbeth Porter) A/P Assessment and Plan 1. Altered mental status. 2. Chest pain, rule out myocardial infarction and/or cardiac event. 3. Hypertension. 4. Probable pneumonia. 5. Abdominal pain with possible gastritis. 6. History of atrial fibrillation with subtherapeutic anticoagulation level. 7. History of cerebrovascular accident. 8. Hyperlipidemia. vitals reviewed, pulse 50s, other trends normal, no dizziness noted labs reviewed, mild leukopenia, will check labs in the morning U/A culture pending, no anticoags today, aspirin heparin or Coumadin. pna, antibiotic therapy, O2 , duonebs , encourage to turn, cough, deep breath. No acute SOB noted at rest abd pain, improved, hemoccult negative, GI consult, EGD today. chest pain improved, Appreciate cardia consult, probably non cardiac Immediate postop note: EGD with biopsy and Colonoscopy with snare polypectomy Indication: Chest pain, Screening for colon cancer EGD results showed normal esophagus, I'll gastritis, polyp in the transverse colon which was cauterized, diverticulosis According to GI's note gallbladder could be worked up as an outpatient. Objective Increase activity, up in chair today. AMS, answers questions appropriately today. Know where he is and can relate to his symptoms. Neuro consult appreciate metabolic encephalopathy improving, returning to baseline. Monitor comorbidities with medical management. Discussed plan of care with Dr. Noel, seen on his behalf D/W nurse D/W patient Discharge planning in the next day or 2. 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
[2016-10-31] MEDS: ATORVASTATIN 10 MG TAB PO SCH (12:12)
[2016-10-31] MEDS: LISINOPRIL 20 MG TAB PO SCH (12:12)
[2016-10-31] MEDS: SODIUM CHLORIDE 0.9% FLUSH 10 ML FLUSH IV FLUSH SCH ×2 (12:13→20:03)
[2016-10-31] MEDS: METOPROLOL TARTRATE 50 MG TAB PO SCH ×2 (12:13→20:02)
[2016-10-31] MEDS: DOCUSATE SODIUM 50 MG/SENNA 8.6 MG TAB PO SCH ×2 (12:13→20:03)
--- NOTE | 2016-10-31 12:14 | HHI.FF ---
Face to Face Verification Diagnosis: (1) Pneumonia (2) Atrial fibrillation with RVR (3) CAD (coronary artery disease) (4) Hyperlipidemia (5) Hypertension (6) History of CVA (cerebrovascular accident) Physical Therapy Order: Evaluate and Treat, Improve ambulation, Strength and gait training Occupational Therapy Order: Improve ADL, Gross motor coordination, Fine motor coordination Home Health Nursing Order: Signs/symptoms of disease process Nursing assessment with vital signs I have seen patient Shubham Stevens on 10/31/16. My clinical findings support the need for the requested home health care services because: Deconditioned w/ increased weakness Limited ability to care for self High risk of falls I certify that my clinical findings support that this patient is homebound because: Impaired cognitive ability/safety Unsteady gait/balance Lisbeth Porter Oct 31, 2016 12:14
[2016-10-31] MEDS: AZITHROMYCIN INJ 250 MG in SODIUM CHLOR 0.9% 250 ML INJ 250 ML IV SCH (15:11)
[2016-10-31] MEDS: cefTRIAXone INJ 1,000 MG in SODIUM CHLORIDE 0.9% INJ 100 ML IV SCH (16:40)
[2016-10-31] MEDS: SODIUM CHLOR 0.9% 1000 ML INJ 1,000 ML IV SCH (16:40)
--- NOTE | 2016-10-31 17:30 | PD.CARD.PN ---
Subjective Subjective Remarks No CP or SOB, feels better Objective Medications Current Medications Medications (Trade) Dose Ordered Sig/Michelle Route Start Time Stop Time Status Last Admin (NS Flush) 2 ml UNSCH PRN IV FLUSH 10/29/16 18:45 (NS Flush) 2 ml BID IV FLUSH 10/29/16 21:00 10/31/16 12:13 (Tylenol) 650 mg Q4H PRN PO 10/29/16 18:45 (Zofran Inj) 4 mg Q6H PRN IVP 10/29/16 18:45 (Heparin Inj) 5,000 units Q12H SQ 10/29/16 21:00 Hold 10/30/16 20:58 (Narcan Inj) 0.4 mg UNSCH PRN IV 10/29/16 18:45 (Yaritza-Colace) 1 tab BID PO 10/29/16 21:00 10/30/16 08:33 (Milk Of Magnesia Liq) 30 ml Q12H PRN PO 10/29/16 18:45 (Senokot) 17.2 mg Q12H PRN PO 10/29/16 18:45 (Dulcolax Supp) 10 mg DAILY PRN RECTAL 10/29/16 18:45 (Lactulose Liq) 30 ml DAILY PRN PO 10/29/16 18:45 (Aspirin Chew) 162 mg DAILY PO 10/29/16 18:45 10/30/16 08:32 (Nitrostat Sl) 0.4 mg Q5M PRN SL 10/29/16 18:45 (Lipitor) 10 mg DAILY PO 10/30/16 09:00 10/31/16 12:12 (Prinivil) 20 mg DAILY PO 10/30/16 09:00 10/31/16 12:12 (Lopressor) 50 mg BID PO 10/29/16 21:00 10/30/16 20:58 Ergocalciferol 97084 units 50,000 units Q7D PO 10/29/16 21:00 Ceftriaxone Sodium 1000 mg/ Sodium Chloride 100 ml @ 200 mls/hr Q24H IV 10/30/16 16:00 10/31/16 16:40 Azithromycin 250 mg/Sodium Chloride 250 ml @ 250 mls/hr Q24H IV 10/30/16 15:00 10/31/16 15:11 (NS 1000 ml Inj) 1,000 ml @ 42 mls/hr [id number] IV 10/29/16 19:45 10/31/16 16:40 (Protonix Inj) 40 mg Q12H IV PUSH 10/30/16 13:00 10/31/16 12:12 Vital Signs / I&O Vital Signs Date Time Temp Pulse Resp B/P Pulse Ox O2 Delivery O2 Flow Rate FiO2 10/31/16 16:00 96.7 58 18 143/80 99 10/31/16 12:00 96.6 54 18 179/84 100 10/31/16 10:58 52 18 136/76 100 10/31/16 10:48 50 18 105/65 97 10/31/16 10:38 97.5 50 18 114/67 98 10/31/16 09:19 97.9 52 18 149/83 99 10/31/16 08:00 97.9 52 18 149/83 99 10/31/16 04:00 98.3 67 18 155/84 98 10/31/16 00:00 98.4 58 17 153/83 97 10/30/16 21:00 56 10/30/16 20:00 98.5 61 18 160/84 99 I/O 10/30/16 10/30/16 10/30/16 10/31/16 10/31/16 10/31/16 06:59 14:59 22:59 06:59 14:59 22:59 Intake Total 1309 ml 254 ml 200 ml 229 ml Output Total 300 ml 200 ml Balance 1009 ml 54 ml 200 ml 229 ml Intake Oral 900 ml IV Total 409 ml 254 ml 229 ml Other 200 ml Output Urine Total 300 ml 200 ml # Voids 1 2 # Bowel Movements 2 Physical Exam GENERAL: In NAD SKIN: Warm and dry. HEAD: Normocephalic. EYES: No scleral icterus. No injection or drainage. NECK: Supple, trachea midline. No JVD or lymphadenopathy. CARDIOVASCULAR: Regular rate and rhythm without murmurs, gallops, or rubs. RESPIRATORY: Breath sounds equal bilaterally. No accessory muscle use. GASTROINTESTINAL: Abdomen soft, non-tender, nondistended. MUSCULOSKELETAL: No cyanosis, or edema. Laboratory Laboratory Tests Test 10/31/16 06:01 White Blood Count 3.5 TH/MM3 Red Blood Count 4.87 MIL/MM3 Hemoglobin 14.0 GM/DL Hematocrit 40.7 % Mean Corpuscular Volume 83.4 FL Mean Corpuscular Hemoglobin 28.7 PG Mean Corpuscular Hemoglobin 34.4 % Concent Red Cell Distribution Width 13.4 % Platelet Count 238 TH/MM3 Mean Platelet Volume 8.1 FL Neutrophils (%) (Auto) 47.2 % Lymphocytes (%) (Auto) 34.3 % Monocytes (%) (Auto) 10.2 % Eosinophils (%) (Auto) 7.8 % Basophils (%) (Auto) 0.5 % Neutrophils # (Auto) 1.6 TH/MM3 Lymphocytes # (Auto) 1.2 TH/MM3 Monocytes # (Auto) 0.4 TH/MM3 Eosinophils # (Auto) 0.3 TH/MM3 Basophils # (Auto) 0.0 TH/MM3 CBC Comment DIFF FINAL Differential Comment Prothrombin Time 18.0 SEC Prothromb Time International 1.6 RATIO Ratio Sodium Level 136 MEQ/L Potassium Level 3.5 MEQ/L Chloride Level 99 MEQ/L Carbon Dioxide Level 30.4 MEQ/L Anion Gap 7 MEQ/L Blood Urea Nitrogen 5 MG/DL Creatinine 0.78 MG/DL Estimat Glomerular Filtration 120 ML/MIN Rate Random Glucose 81 MG/DL Calcium Level 8.8 MG/DL Imaging Last Impressions Brain MRI 10/29/16 1606 Signed Impressions: Service Date/Time: Saturday, October 29, 2016 17:33 - CONCLUSION: 1. No acute intracranial abnormalities identified. There are no findings to indicate recent ischemia. No mass is visualized. 2. Chronic changes include left parietal lobe encephalomalacia and partially cystic encephalomalacia in the left frontal lobe. Sher Kahn MD Head CT 10/29/16 1204 Signed Impressions: Service Date/Time: Saturday, October 29, 2016 15:21 - CONCLUSION: 1. Decreased attenuation posteriorly on the left possibly representing infarct however this could also represent vasogenic edema and underlying mass is not excluded. Postcontrast MR is warranted for further assessment. 2. Old, encephalomalacic infarct involving the left caudate nucleus. Francisco Srinivasan MD Chest X-Ray 10/29/16 1159 Signed Impressions: Service Date/Time: Saturday, October 29, 2016 12:24 - CONCLUSION: Increasing consolidative changes left base. Edin Srinivasan MD FACR Abdomen/Pelvis CT 10/29/16 1159 Signed Impressions: Service Date/Time: Thursday, October 29, 2016 15:18 - CONCLUSION: 1. Developing left lower lobe pneumonia versus aspiration. 2. Stomach is nearly completely decompressed with prominence of the gastric wall in the fundus and body of the stomach. Although this is likely related to incomplete gastric distention, gastritis or less likely an infiltrative process cannot be entirely excluded. Clinical correlation is recommended. Further evaluation may be performed with upper GI examination or endoscopy as clinically warranted. 3. Normal appendix. 4. Apparent interval enlargement of left adrenal mass now measuring 2.4 x 1.4 x 3.3 cm in comparison to remote prior CT examination of 2011. Further evaluation may be performed with adrenal mass protocol MRI or CT examination. Reuben Freeman MD Assessment and Plan Problem List: (1) Chest pain (2) CAD (coronary artery disease) (3) History of CVA (cerebrovascular accident) (4) Hypertension (5) Hyperlipidemia Assessment and Plan No new cardiac symptoms. Endoscopy with gastritis and colon polyps. Echo w nl LV fx. CP was likely noncardiac, likely of GI origin. Stable from cardiac standpoint. Problem Qualifiers (1) Chest pain: Qualified Code: R07.9 - Chest pain, unspecified type Nirmala Hay MD Oct 31, 2016 17:30
[2016-11-01] VITALS: BP 148/79; PULSE 56; RESP 17; TEMP 97.4; O2SAT 98
[2016-11-01] MEDS: PANTOPRAZOLE SODIUM 40 MG VIAL IV PUSH SCH (02:01)
[2016-11-01 04:00] VITALS: BP 141/89; PULSE 56; RESP 16; TEMP 98.6; O2SAT 98
--- NOTE | 2016-11-01 07:14 | MP ---
cc: TAMMY CONSTANTINO M.D., MUHAMMED N. MD SULLIVAN, HAROLD H. MD DATE OF SURGERY: 10/31/2016 PROCEDURE: 1. Esophagogastroduodenoscopy with biopsy 2. Colonoscopy with snare polypectomy. INDICATIONS FOR PROCEDURE: Chest pain. Screening for colon cancer. REFERRING PHYSICIAN: Dr. Cano. PROCEDURE: After informed consent was obtained, the patient was placed in a left side down position, he was sedated by the anesthesia service. After adequate sedation was achieved the Pentax video scope was inserted into the oropharynx and advanced to the esophagus, stomach and duodenum. Then slowly withdrawn examining the mucosal surfaces carefully, biopsy was taken from the gastric antrum and reflex was preformed in the fundus and cardia. The scope was then straightened and pulled slowly to the esophagus and the procedure was terminated. A colonoscopy was then preformed, the digital rectal examination was normal. The Pentax video scope was inserted into the anal canal and advanced to the colon reaching the base of the cecum. It was then slowly withdrawn examining the mucosal services carefully. In the transverse colon a 1.5 cm polyp was identified on a short stalk, this was removed with snare polypectomy in two pieces. Both pieces were recovered and submitted for testing. The scope was withdrawn further through the colon, into the rectum. It was retroflexed in the rectum, it was drained and pulled through the anal canal and the procedure was terminated. He tolerated both the procedures well and was returned to the Recovery area in good condition. FINDINGS: 1. The esophagus was normal. 2. In the stomach there was mild gastritis, a biopsy was taken to evaluate for H-Pylori. 3. The duodenum is normal. 4. In the cecum there was possibly small submucosal lesion of uncertain significance. 5. The transverse colon, there is a 1.5 cm polyp on a short stalk. Snare polypectomy was preformed with cautery and recovered in two pieces. 6. Scattered diverticulosis. 7. The rectum is normal. IMPRESSION: 1. Gastritis. 2. Colon polyp. 3. Diverticulosis. 4. Snare polypectomy preformed. 5. Possible submucosal lesion in the cecum. RECOMMENDATIONS: 1. Continue to hold heparin and coumadin unless absolutely necessary for the next seven days to prevent bleeding from the polypectomy site. 2. Evaluate his chest pain a gallbladder evaluation probably should be preformed, possibly on an outpatient basis. 3. CT scan of the abdomen and pelvis should be preformed if not already. 4. Recent CT scan did not show any evidence of colonic lesion in the cecum. This might be further evaluated as an outpatient. Nate Hamilton MD [facility]/ /10:51 AM /7:05 AM
[2016-11-01 07:19] LABS: HEMATOCRIT 38.7 % (39.0-51.0); MEAN CELL VOLUME 83.1 FL (80.0-100.0); MEAN CORPUSCULAR HEMOGLOBIN 27.9 PG (27.0-34.0); MEAN CORPUSCULAR HGB CONC 33.6 % (32.0-36.0); PLATELET COUNT 231 TH/MM3 (150-450); RED BLOOD COUNT 4.65 MIL/MM3 (4.50-5.90); RED CELL DISTRIBUTION WIDTH 13.2 % (11.6-17.2); REVIEW FLAG FINAL; WHITE BLOOD COUNT 3.8 TH/MM3 (4.0-11.0)
[2016-11-01 07:27] LABS: INTERNATIONAL NORMALIZED RATIO 1.5 RATIO; PROTHROMBIN TIME - PATIENT 16.9 SEC (9.8-11.6)
[2016-11-01 08:00] VITALS: BP_SYST 134; BP_SYST 151; BP_DIAS 74; BP_DIAS 93; PULSE 120; PULSE 66; RESP 18; TEMP 98.7; TEMP 99.1; O2SAT 95; O2SAT 97
[2016-11-01] MEDS: SODIUM CHLORIDE 0.9% FLUSH 10 ML FLUSH IV FLUSH SCH (09:00)
[2016-11-01] MEDS: METOPROLOL TARTRATE 50 MG TAB PO SCH (09:00)
[2016-11-01] MEDS: DOCUSATE SODIUM 50 MG/SENNA 8.6 MG TAB PO SCH (09:00)
[2016-11-01] MEDS: ASPIRIN 81 MG CHEW TAB PO SCH (10:04)
[2016-11-01] MEDS: ATORVASTATIN 10 MG TAB PO SCH (10:04)
[2016-11-01] MEDS: LISINOPRIL 20 MG TAB PO SCH (10:04)
--- NOTE | 2016-11-01 11:20 | HHI.PR ---
Subjective Remarks Sitting up on side of bed eating Alert oriented no distress No abdominal pain Appetite good eating 100% (Lisbeth Porter) Objective Objective Results - Vital Signs Date Time Temp Pulse Resp B/P Pulse Ox O2 Delivery O2 Flow Rate FiO2 11/01/16 08:00 98.7 66 18 134/74 97 11/01/16 04:00 98.6 56 16 141/89 98 11/01/16 00:00 97.4 56 17 148/79 98 10/31/16 21:00 63 10/31/16 20:00 98.2 60 18 161/83 100 10/31/16 16:00 96.7 58 18 143/80 99 10/31/16 12:00 96.6 54 18 179/84 100 I/O 10/31/16 10/31/16 10/31/16 11/01/16 11/01/16 11/01/16 07:00 15:00 23:00 07:00 15:00 23:00 Intake Total 254 ml 200 ml 1209 ml Output Total 200 ml 400 ml Balance 54 ml 200 ml 809 ml Intake Oral 480 ml IV Total 254 ml 729 ml Other 200 ml Output Urine Total 200 ml 400 ml # Voids 1 2 2 # Bowel Movements 2 1 1 (Lisbeth Porter) Result Diagram: 11/01/16 0625 10/31/16 0601 ROS General: Fatigue (improved gradual improved), Weakness, Other (10 point ROS done positives noted) Pulmonary: Cough (occasional), SOB (none at rest) GI: Abdominal Pain (resolved), BM (Lisbeth Porter) Physical Exam Physical Exam PHYSICAL EXAMINATION GENERAL: This is an elderly male who appears to be in no acute distress. He is alert and awake, HEAD: Normocephalic without any lesion or mass noted. Facial features appear symmetric. OROPHARYNGEAL: Oropharynx NECK: Supple. No nuchal rigidity or lymphadenopathy. Trachea midline without deviation. CARDIAC: Regular rhythm, regular rate, S1 and S2 are heard. LUNGS: Clear to auscultation bilaterally. Decreased breath sounds in his bases ABDOMEN: Soft, nontender, no organomegaly or masses. Bowel sounds active EXTREMITIES: no edema. Pulses intact NEUROLOGICAL: Patient mood and affect appropriate. No focal deficit SKIN:Warm and moist (Lisbeth Porter) A/P Assessment and Plan 1. Altered mental status. 2. Chest pain, no TN, 3. Hypertension. 4. Probable pneumonia. 5. gastritis. 6. History of atrial fibrillation with subtherapeutic anticoagulation level. 7. History of cerebrovascular accident. 8. Hyperlipidemia. #9. Diverticulosis #10 possible mucosal lesion of the cecum #11 leukopenia, monitor labs and through his PCP as an outpatient vitals reviewed, normal trends labs reviewed, U/A culture pending, pna, antibiotic therapy, O2 , duonebs , encourage to turn, cough, deep breath. No acute SOB noted at rest No chest pain no shortness of breath abd pain, improved, hemoccult negative, GI consult, EGD today. Appreciate GI workup, status post EGD with biopsy and colonoscopy with polypectomy, also found was Gastritis, colon polyp which was removed, diverticulosis and possible mucosal lesion of the cecum Heparin and Coumadin was held for the next 7 days, possible gallbladder evaluation can be done as an outpatient, CT of the abdomen and pelvis can also be done as an outpatient. Protonix changed to by mouth Objective Increase activity, up in chair today. AMS, answers questions appropriately today. Know where he is and can relate to his symptoms. Neuro consult appreciate metabolic encephalopathy improving, returning to baseline. Monitor comorbidities with medical management. Discussed plan of care with Dr. Noel, seen on his behalf D/W nurse D/W patient Discharge planning in the next day or 2. Home with home health ,patient is ambulating in room safely Physical therapy evaluation ordered for recommendations, the patient is ambulating in room. We will go ahead and discharge (Lisbeth Porter) Assessment and Plan Patient seen and examined as above Meds and labs reviewed Appreciate consultants help Discussed with patient about DC planning. Discussed with patient in detail about medication including Coumadin to be a start coming Thursday. Also instructed to have PT/INR done Thursday after that tried on November 10. And advised to follow primary care doctor and also follow primary care doctor instruction for further Coumadin dosage. Patient advised to call primary care on Thursday , November 10. Discussed with RN Plan of care discussed with OSMAN. Extensive time spent in DC planning of this patient. (Crystal Noel MD) Lisbeth Porter Nov 01, 2016 11:20 Crystal Noel MD Nov 01, 2016 14:14
[2016-11-01 12:00] VITALS: BP 170/82; PULSE 52; RESP 16; TEMP 96.7; O2SAT 100
[2016-11-01] MEDS ORDERED: CEFU1TAB20 PO (13:51)
[2016-11-01] MEDS ORDERED: WARF-20 PO (13:51)
[2016-11-01] MEDS ORDERED: ZITH500T PO (13:51)
[2016-11-01] MEDS ORDERED: PANT20 PO (13:51)
[2016-11-01 14:43] VITALS: BP 152/78; PULSE 56
[2016-11-02] MEDS ORDERED: PANTOPRAZOLE SOD 20 MG DELAYED RELEASE TAB PO SCH (09:00)
--- NOTE | 2016-11-02 18:14 | HHI.DS ---
Discharge Summary Admission Date Oct 29, 2016 at 18:31 Discharge Date: Nov 01, 2016 Admitting Diagnosis AMS, Pneumonia, Chest Pain Brief History 66 yr old with left-sided mid chest pain that seemed to come and go. He states that he did get short of breath with some nausea and vomiting. He also notes some abdominal pain with some dark emesis. He points to mid lower abdomen and states that when he had nausea and vomiting he noticed some dark emesis. The patient does show generalized weakness and fatigue. ETOH abuse according to . CBC/BMP: 11/01/16 0625 10/31/16 0601 Significant Findings Laboratory Tests Test 10/31/16 11/01/16 06:01 06:25 White Blood Count 3.5 TH/MM3 3.8 TH/MM3 (4.0-11.0) (4.0-11.0) Monocytes (%) (Auto) 10.2 % (0.0-8.0) Eosinophils (%) (Auto) 7.8 % (0.0-4.0) Neutrophils # (Auto) 1.6 TH/MM3 (1.8-7.7) Prothrombin Time 18.0 SEC 16.9 SEC (9.8-11.6) (9.8-11.6) Blood Urea Nitrogen 5 MG/DL (7-18) Hematocrit 38.7 % (39.0-51.0) Imaging Last Impressions Brain MRI 10/29/16 1606 Signed Impressions: Service Date/Time: Saturday, October 29, 2016 17:33 - CONCLUSION: 1. No acute intracranial abnormalities identified. There are no findings to indicate recent ischemia. No mass is visualized. 2. Chronic changes include left parietal lobe encephalomalacia and partially cystic encephalomalacia in the left frontal lobe. Sher Kahn MD Head CT 10/29/16 1204 Signed Impressions: Service Date/Time: Saturday, October 29, 2016 15:21 - CONCLUSION: 1. Decreased attenuation posteriorly on the left possibly representing infarct however this could also represent vasogenic edema and underlying mass is not excluded. Postcontrast MR is warranted for further assessment. 2. Old, encephalomalacic infarct involving the left caudate nucleus. Francisco Srinivasan MD Chest X-Ray 10/29/16 1159 Signed Impressions: Service Date/Time: Saturday, October 29, 2016 12:24 - CONCLUSION: Increasing consolidative changes left base. Edin Srinivasan MD FACR Abdomen/Pelvis CT 10/29/16 1159 Signed Impressions: Service Date/Time: Saturday, October 29, 2016 15:18 - CONCLUSION: 1. Developing left lower lobe pneumonia versus aspiration. 2. Stomach is nearly completely decompressed with prominence of the gastric wall in the fundus and body of the stomach. Although this is likely related to incomplete gastric distention, gastritis or less likely an infiltrative process cannot be entirely excluded. Clinical correlation is recommended. Further evaluation may be performed with upper GI examination or endoscopy as clinically warranted. 3. Normal appendix. 4. Apparent interval enlargement of left adrenal mass now measuring 2.4 x 1.4 x 3.3 cm in comparison to remote prior CT examination of 2011. Further evaluation may be performed with adrenal mass protocol MRI or CT examination. Reuben Freeman MD PE at Discharge PHYSICAL EXAMINATION GENERAL: This is a elderly male who appears to be in no acute distressat rest He is alert and awake, HEAD: Normocephalic without any lesion or mass noted. Facial features appear symmetric. OROPHARYNGEAL: Oropharynx clear NECK: Supple. No nuchal rigidity or lymphadenopathy. Trachea midline without deviation. CARDIAC: Regular rhythm, regular rate, S1 and S2 are heard. LUNGS: diminished to auscultation bilaterally. Low to moderate air volumes ABDOMEN: Soft, nontender, no organomegaly or masses. Bowel sounds heard, soft EXTREMITIES: no edema. Pulses equal bilateral. NEUROLOGICAL: Patient mood and affect appropriate. No focal deficit SKIN:Warm and moist (Lisbeth Porter) Hospital Course These are the diagnosis used to treat patient. 1. Altered mental status. 2. Chest pain, rule out myocardial infarction and/or cardiac event. 3. Hypertension. 4. Probable pneumonia. 5. Abdominal pain with possible gastritis. 6. History of atrial fibrillation with subtherapeutic anticoagulation level. 7. History of cerebrovascular accident. 8. Hyperlipidemia. vitals reviewed, normal trends throughout stay except for asymtomatic bradycardia labs reviewed, mild leukopenia, monitored without treatment needed. U/A culture pending, no anticoags today, aspirin heparin or Coumadin. pna, antibiotic therapy, O2 , duonebs , encourage to turn, cough, deep breath. No acute SOB noted at rest abd pain, improved, hemoccult negative, GI consulted, EGD was done today. Immediate postop note: EGD with biopsy and Colonoscopy with snare polypectomy Indication: Chest pain, Screening for colon cancer EGD results showed normal esophagus, I'll gastritis, polyp in the transverse colon which was cauterized, diverticulosis. According to GI's note gallbladder could be worked up as an outpatient. chest pain improved, Appreciate cardia consult, ND was ruled out. probably non cardiac in nature. Increased activity, up in chair todayand room. tolerate well. No dizziness AMS resolved after 24 hrs and IV hydration./, answers questions appropriately rest of hospital stay. Knows where he is and can relate to his symptoms. Neuro consult appreciate, followed needs, metabolic encephalopathy improving, returning to baseline. Monitor comorbidities with medical management. No acute needs Dr. Noel noted pt seen and examined as above labs and meds reviewed has low heart rate hold B Sedrick if any coumadin on hold per gi stable for DC home. Has family and friends to assist . F/U PCP. Pt Condition on Discharge: Good Discharge Disposition: Discharge Home Discharge Instructions DIET: Follow Instructions for: Heart Healthy Diet Activities you can perform: Weight Bearing as Kai Follow up Referrals: Gastroenterology - 2 Weeks PCP Follow-up - 1 Week New Medications: Azithromycin (Zithromax) 500 Mg Tab 500 MG PO DAILY Infection #2 Ref 0 TAB Cefuroxime (Cefuroxime) 500 Mg Tab 500 MG PO BID Infection #14 Ref 0 TAB Pantoprazole (Protonix) 20 Mg Tab 20 MG PO DAILY gastritis #31 TAB Changed Medications: Warfarin (Warfarin) 4 Mg Tab 4 MG PO DAILY Please is start Coumadin from numbing Monday, November 07, 2016. And go for PT/INR on Thursday, November 10. And follow with your primary care doctor for further instruction about Coumadin dosage Blood Clot Prevention #30 Ref 0 TAB ( Medication details modified) Continued Medications: Ergocalciferol (Ergocalciferol) 50,000 Unit Cap 48996 UNITS PO Q7D Nutritional Supplement #30 Ref 0 CAP Lisinopril (Lisinopril) 20 Mg Tab 20 MG PO DAILY #30 Ref 0 TAB Metoprolol Tartrate (Metoprolol Tartrate) 50 Mg Tab 50 MG PO BID #60 Ref 0 TAB Lisbeth Porter Nov 02, 2016 18:13
== END 2016-11-01 14:53 | disposition home or self-care (01) | DRG 377 ==
LOC: NEPC 11:38 → NEDA 18:31 → HOCA 22:20
PROVIDERS: ADMIT Specialist; ATTEND Specialist
PROC: 0DBL8ZX Excision of Transverse Colon, Via Natural or Artificial Opening Endoscopic, Diagnostic (ICD-10-PCS; principal; 2016-10-31 09:45)
PROC: 0DB68ZX Excision of Stomach, Via Natural or Artificial Opening Endoscopic, Diagnostic (ICD-10-PCS; 2016-10-31 09:45)
DX: K92.1 Melena (principal); G93.41 Metabolic encephalopathy; J18.9 Pneumonia, unspecified organism; I11.0 Hypertensive heart disease with heart failure; I50.9 Heart failure, unspecified; I48.0 Paroxysmal atrial fibrillation; J44.0 Chronic obstructive pulmonary disease with (acute) lower respiratory infection; E87.1 Hypo-osmolality and hyponatremia; E78.5 Hyperlipidemia, unspecified; K92.0 Hematemesis; K29.70 Gastritis, unspecified, without bleeding; D12.3 Benign neoplasm of transverse colon; K57.30 Diverticulosis of large intestine without perforation or abscess without bleeding; I25.10 Atherosclerotic heart disease of native coronary artery without angina pectoris; E11.9 Type 2 diabetes mellitus without complications; E86.0 Dehydration; I10 Essential (primary) hypertension; H91.92 Unspecified hearing loss, left ear; Z86.73 Personal history of transient ischemic attack (TIA), and cerebral infarction without residual deficits; Z79.01 Long term (current) use of anticoagulants; I25.2 Old myocardial infarction; Z87.891 Personal history of nicotine dependence
CPT/HCPCS: 70450; 70553; 71010; 74177; 80048; 80053; 80307; 81001; 82272; 82550; 82552; 83690; 83735; 83880; 84484; 85025; 85027; 85610; 85730; 87086; 88305; 88312; 93005; 93306; 96365; 96368; 96375; A9579; C9113; J0456; J0696; J1644; J2270; J2405; J7030; J7050; Q9967